=== PATIENT | female | born 1965 | race Caucasian/White ===

== ENCOUNTER 2018-01-21 07:37 | Outpatient (CLI) | payer BC, SELFPAY ==
[2018-01-21 07:59] LABS: HCT 41.9 % (36.0-46.0); HGB 14.2 g/dL (12.0-15.5); Mean Corp. HGB Concentration 33.9 g/dL (32.0-36.0); Mean Corpuscular Hemoglobin 32.1 pg (27.0-33.0); Mean Corpuscular Volume 94.6 fL (80-95); Mean Platelet Volume 10.9 fL (8.0-11.0); Platelet Count 216 x1000/uL (130-400); RBC 4.43 m/cumm (4.00-5.20); RBC Distribution Width 12.3 % (11.7-14.6); White Blood Cell Count 5.68 k/cumm (4.4-10.8)
[2018-01-21 08:53] LABS: ALT 44 U/L (12-78); AST 20 U/L (15-37); Albumin 3.3 g/dL (3.4-5.0); Alkaline Phosphatase 111 U/L (46-116); Anion Gap 10.3 mmol/L (3-11); BUN 18 mg/dL (7-18); Bilirubin, Total 0.3 mg/dL (0.2-1.0); CO2 25.7 mmol/L (21.0-32.0); CREATININE 1.08 mg/dL (0.55-1.02); Calcium 8.1 mg/dL (8.5-10.1); Chloride 105 mmol/L (98-107); Cholesterol 214 mg/dL (50-200); Estimated GFR 53.07 (mL/min/1.73m2); Glucose 147 mg/dL (70-100); HDL Cholesterol 32 mg/dL (40-60); LDL CHOLESTEROL 127 mg/dL (<100); Potassium 4.3 mmol/L (3.5-5.1); Sodium 141 mmol/L (136-145); TSH (W/Ref FT4) 1.68 uIU/mL (0.358-3.74); Total Protein 6.7 g/dL (6.4-8.2); Triglyceride 343 mg/dL (30-150)
== END 2018-01-21 07:57 ==
PROVIDERS: PCP Family Medicine; Visit Provider Family Medicine
DX: Z00.00 Encounter for general adult medical examination without abnormal findings (principal); K29.70 Gastritis, unspecified, without bleeding; Z13.220 Encounter for screening for lipoid disorders; Z13.29 Encounter for screening for other suspected endocrine disorder; Z13.228 Encounter for screening for other metabolic disorders
CPT/HCPCS: 36415; 80053; 80061; 83721; 85027; 84443

== ENCOUNTER 2018-01-21 10:49 | Outpatient (REF) | payer BC, SELFPAY ==
--- NOTE | 2018-01-21 10:00 | PAPFT_PTH ---
PATIENT: Elly Gardner LOC: [facility] U#:[id number] AGE/SX: 52/F ROOM: RE01/21/[address]: Rhea Jackson MD, DC : 1965 BED: DIS: 01/21/2018 SPEC #: [id number] RECD: 01/21/18 12:54 STATUS: JOSE REQ #: [id number] RUBA: 01/21/18 10:[address]: Rhea Jackson DEPT: [facility] Cytology RECD BY: Nilsa Herrera Tissues: 1 - CX/ENDOCX FOR PAP SMEARS Procedures: PAP THIN PREP/UVM Screening HPV DNA PROBE Comments: [id number]
== END 2018-01-21 11:09 ==
LOC: LBN 10:49
PROVIDERS: PCP Family Medicine; Visit Provider Family Medicine
DX: Z12.4 Encounter for screening for malignant neoplasm of cervix (principal); Z11.51 Encounter for screening for human papillomavirus (HPV)
CPT/HCPCS: 88142; 87624

== ENCOUNTER 2018-02-28 00:31 | Outpatient (CLI) | payer BC, SELFPAY ==
--- NOTE | 2018-02-28 13:00 | DI.MAMMO_ITS ---
SYMPTOM/DIAGNOSIS: SCREENING, Z12.31 MAMMOGRAMS: Mammograms were interpreted according to the usual protocol including computer analysis with CAD system, tomosynthesis and C view imaging. Comparison with prior examinations. Breast density A. No masses or microcalcifications are seen. There is nothing to suggest malignancy. IMPRESSION: Negative mammogram. Routine screening is recommended. Category I. MQSA ASSESSMENT OF FINDINGS: Negative. Category 1. Patient will receive a letter notifying them of these results. BI-RAD category A. The breasts are almost entirely fatty.
== END 2018-02-28 00:51 ==
PROVIDERS: PCP Family Medicine; Visit Provider Family Medicine
DX: Z12.31 Encounter for screening mammogram for malignant neoplasm of breast (principal)
CPT/HCPCS: 77063; 77067

== ENCOUNTER 2018-04-14 01:08 | Outpatient (CLI) | payer BC, SELFPAY ==
--- NOTE | 2018-04-14 11:20 | DI.RAD_ITS ---
SYMPTOM/DIAGNOSIS: BLOATING R14.0, ? IRRITABLE BOWEL DISEASE UPPER GI AND SMALL BOWEL FOLLOW THROUGH: Fluoroscopy Time: 37 seconds Comparison is made with 11/14/16. The patient swallowed barium without difficulty. Severe gastroesophageal reflux was observed when the patient was placed supine. The previously noted esophageal narrowing is no longer seen. No ulcerations are identified. The stomach shows normal emptying. The transit time of the barium to the colon was approximately 30 minutes. Small bowel fold pattern appears normal. A moderate quantity of stool is seen throughout the colon. IMPRESSION: Moderate to severe gastroesophageal reflux. No small bowel abnormality is identified.
[2018-04-14] MEDS: Barium Sulfate 60% W/V 355 ML BTL PO (11:31)
== END 2018-04-14 01:28 ==
PROVIDERS: PCP Family Medicine; Visit Provider Nurse Practitioner Family
DX: R14.0 Abdominal distension (gaseous) (principal); K21.9 Gastro-esophageal reflux disease without esophagitis
CPT/HCPCS: 74249; J3490

== ENCOUNTER 2018-07-20 08:37 | Outpatient (CLI) | payer BC, SELFPAY ==
[2018-07-20 10:34] LABS: Cholesterol 256 mg/dL (50-200); HDL Cholesterol 31 mg/dL (40-60); LDL CHOLESTEROL 141 mg/dL (<100); Triglyceride 395 mg/dL (30-150)
[2018-07-21 07:13] LABS: Hemoglobin A1C 6.7 % (4.5-6.2)
== END 2018-07-20 08:57 ==
PROVIDERS: PCP Family Medicine; Visit Provider Family Medicine
DX: I10 Essential (primary) hypertension (principal); R73.09 Other abnormal glucose
CPT/HCPCS: 36415; 80061; 83721; 83036

== ENCOUNTER 2018-11-21 09:00 | Outpatient (CLI) | payer BC, SELFPAY ==
[2018-11-21 10:49] LABS: Hemoglobin A1C 6.3 % (4.5-6.2)
== END 2018-11-21 09:20 ==
PROVIDERS: PCP Family Medicine; Visit Provider Family Medicine
DX: E11.9 Type 2 diabetes mellitus without complications (principal)
CPT/HCPCS: 36415; 83036

== ENCOUNTER 2019-01-24 01:05 | Outpatient (CLI) | payer BC, SELFPAY ==
[2019-01-24 10:25] LABS: ALT 49 U/L (14-59); AST 22 U/L (15-37); Albumin 3.8 g/dL (3.4-5.0); Alkaline Phosphatase 134 U/L (46-116); Anion Gap 10.3 mmol/L (3-11); BUN 21 mg/dL (7-18); Bilirubin, Total 0.6 mg/dL (0.2-1.0); CO2 26.7 mmol/L (21.0-32.0); CREATININE 1.15 mg/dL (0.55-1.02); Calcium 8.9 mg/dL (8.5-10.1); Chloride 102 mmol/L (98-107); Estimated GFR 49.17 (mL/min/1.73m2); Glucose 146 mg/dL (70-100); Potassium 4.6 mmol/L (3.5-5.1); Sodium 139 mmol/L (136-145); Total Protein 7.3 g/dL (6.4-8.2)
[2019-01-24 10:41] LABS: Hemoglobin A1C 6.4 % (4.5-6.2)
[2019-01-26 07:22] LABS: COMMENT (LAB VIEW ONLY) 93.24 mg/dL; Microalb ug/mg Crea 6.3 ug/mg Cr
== END 2019-01-24 01:25 ==
PROVIDERS: PCP Family Medicine; Visit Provider Family Medicine
DX: E11.9 Type 2 diabetes mellitus without complications (principal); I10 Essential (primary) hypertension
CPT/HCPCS: 36415; 80053; 82043; 82570; 83036

== ENCOUNTER 2019-01-27 10:47 | Outpatient (REF) | payer BC, SELFPAY ==
--- NOTE | 2019-01-27 10:00 | PAPFT_PTH ---
PATIENT: Elly Gardner LOC: [facility] U#:[id number] AGE/SX: 53/F ROOM: RE01/27/[address]: Rhea Jackson MD, DC : 1965 BED: DIS: 01/27/2019 SPEC #: [id number] RECD: 01/27/19 12:59 STATUS: JOSE REQ #: [id number] RUBA: 01/27/19 10:[address]: Rhea Jackson DEPT: [facility] Cytology RECD BY: Nilsa Herrera Tissues: 1 - CX/ENDOCX FOR PAP SMEARS Procedures: PAP THIN PREP/UVM Screening HPV DNA PROBE Comments: [id number]
== END 2019-01-27 11:07 ==
LOC: LBN 10:47
PROVIDERS: PCP Family Medicine; Visit Provider Family Medicine
DX: Z12.4 Encounter for screening for malignant neoplasm of cervix (principal); Z11.51 Encounter for screening for human papillomavirus (HPV)
CPT/HCPCS: 88142; 87624

== ENCOUNTER 2019-03-02 01:41 | Outpatient (CLI) | payer BC, SELFPAY ==
--- NOTE | 2019-03-02 15:35 | DI.MAMMO_ITS ---
EXAM: MG MAMMO SCREENING CLINICAL HISTORY: screening, Z12.39 TECHNIQUE: Mammograms were interpreted according to the usual protocol including computer analysis w [employer] CAD system, tomosynthesis and C-view imaging. COMPARISON: [id number] FINDINGS: The breasts are composed of fatty density tissue, breast density category A. There are no dominant m asses or microcalcifications. There is no significant interval change in comparison with the previous examinations. IMPRESSION: Category 1, negative mammogram. Yearly screening mammography is recommended. BI-RADS Cat 1 - Negative Breast Density - Category A - Almost entirely fatty
== END 2019-03-02 02:01 ==
PROVIDERS: PCP Family Medicine; Visit Provider Family Medicine
DX: Z12.31 Encounter for screening mammogram for malignant neoplasm of breast (principal)
CPT/HCPCS: 77063; 77067

== ENCOUNTER 2019-05-27 02:27 | Outpatient (CLI) | payer BC, SELFPAY ==
[2019-05-27 07:28] LABS: HCT 43.1 % (36.0-46.0); HGB 14.7 g/dL (12.0-15.5); Mean Corp. HGB Concentration 34.1 g/dL (32.0-36.0); Mean Corpuscular Hemoglobin 31.6 pg (27.0-33.0); Mean Corpuscular Volume 92.7 fL (80-95); Mean Platelet Volume 10.4 fL (8.0-11.0); Platelet Count 303 x1000/uL (130-400); RBC 4.65 m/cumm (4.00-5.20); RBC Distribution Width 12.3 % (11.7-14.6); White Blood Cell Count 5.52 k/cumm (4.4-10.8)
[2019-05-27 07:51] LABS: Hemoglobin A1C 7.3 % (3.8-5.6)
[2019-05-27 08:15] LABS: Iron 123 ug/dL (50-170)
[2019-05-27 08:42] LABS: Cholesterol 252 mg/dL (<200); HDL Cholesterol 27 mg/dL (40-60); TSH (W/Ref FT4) 2.78 uIU/mL (0.36-3.74); Triglyceride 469 mg/dL (<150); Vitamin B12 529 pg/mL (193-986)
[2019-05-27 09:04] LABS: LDL CHOLESTEROL 140 mg/dL (<100)
== END 2019-05-27 02:47 ==
PROVIDERS: PCP Family Medicine; Visit Provider Family Medicine
DX: Z00.00 Encounter for general adult medical examination without abnormal findings (principal); E11.9 Type 2 diabetes mellitus without complications; I10 Essential (primary) hypertension; F41.9 Anxiety disorder, unspecified
CPT/HCPCS: 36415; 80061; 83721; 85027; 82607; 83036; 83540; 84443

== ENCOUNTER 2019-05-28 11:56 | Outpatient (CLI) | payer BC, SELFPAY ==
--- NOTE | 2019-05-28 15:30 | DI.US_ITS ---
EXAM: US CAROTID CLINICAL HISTORY: vision loss; ? plague thru retina vasculature, H53.9 unspecifid visual TECHNIQUE: Ultrasound performed using standard protocol. COMPARISON: No previous for comparison. FINDINGS: On the right, no significant plaque is seen. No hemodynamically significant velocity elevations are present. The vertebral artery is antegrade. On the left, no significant plaque is seen. No hemodynamically significant velocity elevations are p resent. The vertebral artery is antegrade. IMPRESSION: No hemodynamically significant cervical carotid artery stenosis.
== END 2019-05-28 12:16 ==
PROVIDERS: PCP Family Medicine; Visit Provider Family Medicine
DX: H53.9 Unspecified visual disturbance (principal)
CPT/HCPCS: 93880

== ENCOUNTER 2019-09-14 07:36 | Outpatient (CLI) | payer BC, SELFPAY ==
[2019-09-14 16:58] LABS: ESR 12 mm/hr (0-30)
[2019-09-14 17:11] LABS: ALT 75 U/L (14-59); AST 33 U/L (15-37); Albumin 3.9 g/dL (3.4-5.0); Alkaline Phosphatase 116 U/L (46-116); Anion Gap 7.5 mmol/L (3-11); BUN 17 mg/dL (7-18); Bilirubin, Total 0.4 mg/dL (0.2-1.0); CO2 27.5 mmol/L (21.0-32.0); CREATININE 1.03 mg/dL (0.55-1.02); Calcium 9.3 mg/dL (8.5-10.1); Chloride 101 mmol/L (98-107); Cholesterol 256 mg/dL (<200); Estimated GFR 55.63 (mL/min/1.73m2); Glucose 148 mg/dL (74-106); HDL Cholesterol 29 mg/dL (40-60); Potassium 4.5 mmol/L (3.5-5.1); Sodium 136 mmol/L (136-145); Total Protein 7.2 g/dL (6.4-8.2); Triglyceride 594 mg/dL (<150)
[2019-09-14 17:26] LABS: LDL CHOLESTEROL 132 mg/dL (<100)
== END 2019-09-14 07:56 ==
PROVIDERS: PCP Family Medicine; Visit Provider Family Medicine
DX: E11.9 Type 2 diabetes mellitus without complications (principal); G45.3 Amaurosis fugax
CPT/HCPCS: 36415; 80053; 80061; 83721; 85652; 83036

== ENCOUNTER 2020-01-29 01:52 | Outpatient (CLI) | payer BC, SELFPAY ==
[2020-01-29 16:11] LABS: Hemoglobin A1C 6.6 % (<5.7)
== END 2020-01-29 02:12 ==
PROVIDERS: PCP Family Medicine; Visit Provider Family Medicine
DX: E11.9 Type 2 diabetes mellitus without complications (principal)
CPT/HCPCS: 36415; 83036

== ENCOUNTER 2020-03-14 00:51 | Outpatient (CLI) | payer BC, SELFPAY ==
--- NOTE | 2020-03-14 16:05 | DI.MAMMO_ITS ---
EXAM: MG MAMMO SCREENING CLINICAL HISTORY: screening,Z12.39. TECHNIQUE: Bilateral full field digital CC and MLO mammographic images were obtained with 3D tomosyn thesis and utilizing computer aided detection (CAD). COMPARISON: Prior mammograms dating back to 2010, the most recent being February 2019. Patient's mo gregory was diagnosed with breast cancer at age 54. FINDINGS: There are no CAD designation. There are no new dominant masses nor malignant appearing microcalcification groups. Benign-appearing nodule upper outer quadrant of the left breast is unchanged from prior studies. There is no new arch itectural distortion nor skin thickening-retraction. IMPRESSION: No radiographic evidence of malignancy. Stable benign findings. BI-RADS Category 1 - Negative Breast Density - Category B - Scattered areas of fibroglandular density Breast density Category C or D implies that the patient has dense breast tissue. Dense breast tissue can make it harder to find cancer on a mammogram. Dense breast tissue is also associated with an incr eased risk of breast cancer. This information about the result of the mammogram report was provided to the patient to raise their awareness. Use this report when you speak with the patient about their risks for breast cancer, which includes their family history. At that time, you may recommend additional screening tests (Ultrasoun d or MRI) as these tests may add significant information. A negative radiographic report should not delay biopsy if a dominant or clinically suspicious mass is present. Up to ten percent of cancers are not identified on mammography. A negative report may reinforce clinical impression. Adenosis and dense breasts may obscure an underlying neoplasm. False positive reports average 6 to 10%. Patient will receive a letter notifying them of these results.
== END 2020-03-14 01:11 ==
PROVIDERS: PCP Family Medicine; Visit Provider Family Medicine
DX: Z12.31 Encounter for screening mammogram for malignant neoplasm of breast (principal); Z80.3 Family history of malignant neoplasm of breast
CPT/HCPCS: 77063; 77067

== ENCOUNTER 2020-07-06 04:20 | Outpatient (CLI) | payer BC, SELFPAY ==
[2020-07-06 16:05] LABS: COMMENT (LAB VIEW ONLY) 172.07 mg/dL; Microalb ug/mg Crea 4.1 ug/mg Cr
[2020-07-06 16:15] LABS: Hemoglobin A1C 7.1 % (<5.7)
[2020-07-06 17:25] LABS: ALT 58 U/L (14-59); AST 26 U/L (15-37); Alkaline Phosphatase 129 U/L (46-116); Anion Gap 10.2 mmol/L (3-11); BUN 20 mg/dL (7-18); Bilirubin, Total 0.3 mg/dL (0.2-1.0); CO2 28.8 mmol/L (21.0-32.0); CREATININE 1.1 mg/dL (0.55-1.02); Chloride 100 mmol/L (98-107); Estimated GFR 51.38 (mL/min/1.73m2); Glucose 174 mg/dL (74-106); Potassium 4.1 mmol/L (3.5-5.1); Sodium 139 mmol/L (136-145); TSH (W/Ref FT4) 1.74 uIU/mL (0.36-3.74); Total Protein 7.6 g/dL (6.4-8.2); Vitamin B12 354 pg/mL (193-986)
== END 2020-07-06 04:21 | disposition home or self-care (01) ==
PROVIDERS: PCP Family Medicine; Visit Provider Family Medicine
DX: Z00.00 Encounter for general adult medical examination without abnormal findings (principal); I10 Essential (primary) hypertension; E11.9 Type 2 diabetes mellitus without complications; R41.3 Other amnesia
CPT/HCPCS: 36415; 80053; 82043; 82570; 82607; 83036; 84443

== ENCOUNTER 2020-10-28 21:34 | Outpatient (CLI) | payer BC, SELFPAY ==
[2020-10-28 16:01] LABS: Hemoglobin A1C 8.4 % (<5.7)
== END 2020-10-28 21:35 | disposition home or self-care (01) ==
LOC: LBO 10-31 21:34
PROVIDERS: PCP Family Medicine; Visit Provider Family Medicine
DX: E11.9 Type 2 diabetes mellitus without complications (principal)
CPT/HCPCS: 36415; 83036

== ENCOUNTER 2021-01-11 18:12 | Outpatient (REF) | payer BC, SELFPAY ==
[2021-01-13 12:04] LABS: COVID-19 RT-PCR UVMMC Result Negative (Negative)
== END 2021-01-11 18:13 | disposition home or self-care (01) ==
LOC: LBN 18:12
PROVIDERS: PCP Family Medicine; Visit Provider Physician Assistant
DX: Z20.822 Contact with and (suspected) exposure to COVID-19 (principal); J32.9 Chronic sinusitis, unspecified; R51.9 Headache, unspecified
CPT/HCPCS: U0003

== ENCOUNTER 2021-02-16 02:43 | Outpatient (CLI) | payer BC, SELFPAY ==
[2021-02-16 12:39] LABS: Hemoglobin A1C 7.1 % (<5.7)
[2021-02-16 12:52] LABS: Calculated LDL 141 mg/dL (<100); Cholesterol 255 mg/dL (<200); HDL Cholesterol 35 mg/dL (40-60); Triglyceride 396 mg/dL (<150)
[2021-02-16 13:04] LABS: Ferritin 122 ng/mL (8-252)
== END 2021-02-16 02:44 | disposition home or self-care (01) ==
LOC: LOS 02:43
PROVIDERS: Nurse Practitioner; PCP Family Medicine; Visit Provider Family Medicine
DX: M25.511 Pain in right shoulder (principal); I10 Essential (primary) hypertension; E11.9 Type 2 diabetes mellitus without complications
CPT/HCPCS: 36415; 80061; 82728; 83036

== ENCOUNTER 2021-04-24 01:39 | Outpatient (CLI) | payer BC, SELFPAY ==
--- NOTE | 2021-04-24 09:00 | DI.MAMMO_ITS ---
Exam(s) MAMMO SCREENING EXAM: MAMMO SCREENING CLINICAL HISTORY: screening,Z12.39 TECHNIQUE: Mammograms were interpreted according to the usual protocol including computer analysis w [employer] CAD system, tomosynthesis and C-view imaging. COMPARISON: 2011 through 2019 FINDINGS: The breasts are composed of mainly fatty density , Breast Density category A. No suspicious masses or suspicious microcalcifications are seen. No skin thickening or abnormal axillary lymph nodes are seen. There has been no significant change from prior exams. IMPRESSION: BI-RADS Category 1, Negative mammogram Yearly screening mammography is recommended. Breast Density - Category A, fatty density. A negative radiographic report should not delay biopsy if a dominant or clinically suspicious mass is present. Up to ten percent of cancers are not identified on mammography. A negative report may reinforce clinical impression. Adenosis and dense breasts may obscure an underlying neoplasm. False positive reports average 6 to 10%. Patient will receive a letter notifying them of these results.
== END 2021-04-24 01:59 ==
PROVIDERS: PCP Family Medicine; Visit Provider Family Medicine
DX: Z12.31 Encounter for screening mammogram for malignant neoplasm of breast (principal)
CPT/HCPCS: 77063; 77067

== ENCOUNTER 2021-06-26 10:07 | Outpatient (REF) | payer BC, SELFPAY ==
[2021-06-26 14:15] LABS: COMMENT (LAB VIEW ONLY) 137.79 mg/dL
== END 2021-06-26 10:08 | disposition home or self-care (01) ==
LOC: LBN 10:07
PROVIDERS: PCP Family Medicine; Visit Provider Family Medicine
DX: E11.9 Type 2 diabetes mellitus without complications (principal)
CPT/HCPCS: 82043; 82570

== ENCOUNTER 2021-06-29 08:36 | Emergency (ER) | payer BC, SELFPAY ==
[2021-06-29] VITALS (11 sets, daily range): BP systolic 146–186; BP diastolic 82–106; PULSE 61–78; RESP 14–28; TEMP 36.4; O2SAT 95–99
--- NOTE | 2021-06-29 09:00 | RT.EKG_ITS ---
APPROVED REPORT Exam: Resting ECG Reason for Exam: nausea, head fog Patient Location: E HR:59 bpm ECG Measurements Heart Rate 59 AXIS ID 145 P 45 QRSd 87 QRS 45 QT 419 T 29 QTc 415 Conclusion Sinus bradycardia...rate< [address] elevation
--- NOTE | 2021-06-29 09:00 | DI.RAD_ITS ---
Exam(s) XR CHEST 2V PA LATERAL EXAM: XR CHEST 2V PA LATERAL CLINICAL HISTORY: nausea, head fog. TECHNIQUE: 2D digital imaging was performed. COMPARISON: CR,RF BARIUM SWALLOW UGI from 11/14/2016 FINDINGS: 2 views: Heart size is normal. The mediastinum is not widened. Lungs are clear. No infiltrates nor pleural effusions. IMPRESSION: No acute pulmonary findings. DATA REPOSITORY: RADIATION DOSE DELIVERED:
[2021-06-29 09:35] LABS: Abs Immature Grans 0.05 10^3/uL (0.0-0.06); Absolute Basophil Count 0.04 10^3/uL (0.0-0.2); Absolute Eosinophil Count 0.13 10^3/uL (0.0-0.7); Absolute Lymphocyte Count 2.05 10^3/uL (1.2-3.4); Absolute Monocyte Count 0.46 10^3/uL (0.1-0.8); Absolute Neutrophil Count 4.73 10^3/uL (1.2-6.7); Basophils % 0.5; Eosinophils % 1.7; HCT 44.7 % (36.0-46.0); HGB 14.9 g/dL (11.2-15.7); Immature Grans % 0.7; Lymphocytes % 27.5; MCH 31.2 pg (27.0-33.0); MCHC 33.3 % (32.0-36.0); MCV 93.5 fL (80-95); Monocytes % 6.2; Neutrophils % 63.4; Nucleated RBC 0 %; Platelet Count 271 10^3/uL (130-400); RBC 4.78 10^6/uL (3.93-5.22); RDW-SD 41.7 fL; WBC 7.46 10^3/uL (4.4-10.8)
[2021-06-29] MEDS: Omnipaque 350 MG/ML 100 ML BTL IJ (09:36)
--- NOTE | 2021-06-29 09:42 | DI.CT_ITS ---
Exam(s) CT BRAIN NECK CTA EXAM: CT BRAIN NECK CTA CLINICAL HISTORY: head fog, nausea. TECHNIQUE: Imaging Protocol: Axial CT angiography was performed with multi-slice acquisition and mu lti-planar and/or 3D reconstructions. CONTRAST MATERIAL: Intravenous: Omnipaque 350 Contrast volume:structured data in ml COMPARISON: CT ABD PELVIS WITH CONTRAST from 10/28/2017 FINDINGS: CTA Neck W: Aortic arch anatomy: The left vertebral artery is noted to originate is a separate vessel off the aor tic arch. There is no significant narrowing of the origin of the great vessels off the aortic arch. No dissection flap evident in the aortic arch Anterior circulation: Both common carotid arteries ascend with normal luminal diameters. There is no significant narrowing at the level the carotid bifurcations and proximal internal carotid arteries on either side and both internal carotid arteries are patent in the upper neck. Also demonstrated to be patent in the skull base-carotid canals. Posterior circulation: The left vertebral artery originates as an independent vessel off the aortic arch and ascends as the dominant vertebral artery in the foramen transverse area with normal luminal diameter and serving is the main contributor to the formation of the basilar artery at the skull base. No intraluminal throm bus nor dissection flap seen within this vessel. The opposite-right vertebral artery is a smaller vessel with a luminal diameter of 2 millimeters. It does not exhibit evidence of intraluminal thrombus nor dissection but terminates at at the skull bas e and does not appear to contribute to the formation of the basilar artery. CTA Brain W: Anterior circulation: Both internal carotid arteries are patent in the skull base-carotid canals as well as within the cave rnous sinuses. Supraclinoid aspects are patent. Both A1 segments are patent as are the anterior cer ebral arteries and there is no evidence of aneurysm at the anterior communicating artery level. Both middle cerebral arteries are patent. No significant stenosis nor intraluminal thrombus. No ane urysms these vessels. Posterior circulation: Basilar artery is a thin vessel and ascends with a luminal diameter 2.5 millimeters. Distally it giv es off superior cerebellar arteries. Above this level the basilar artery ends as bilateral posterior cerebral arteries. There are bilateral posterior communicating arteries both sides of the [place] which and to the blood flow into the posterior cerebral arteries. No significant aneurysm at the tip basilar artery nor elsewhere in the [id number]. CT BRAIN: There is no evidence of intracranial hemorrhage, mass effect, or shift of midline structures. There are no extra-axial fluid collections. Ventricles are not enlarged or shifted. There are no ring enh ancing lesions in the brain and no abnormal meningeal enhancement. Incidental note is made of an abnormally elongated right orbital globe. The left orbital globe appea rs unremarkable. IMPRESSION: 1. No evidence of significant carotid artery stenosis in the neck. Both vertebral arteries are paten t, with the left being dominant. Incidentally noted is origin the left vertebral artery off of the a ortic arch. 2. No evidence of significant stenosis nor thrombosis of the main intracranial arteries. No aneurys ms evident. 3. No acute intracranial findings. No ring enhancing lesions in the brain and no abnormal meningea l enhancement. RADIATION DOSE DELIVERED: 1,826.69mGy.cm Total DLP DATA REPOSITORY: All CT scans at this facility are submitted to the National Radiology Data Registry (NRDR) Dose Index Registry (DIR) with the [employer] [place] [employer] (ACR). RADIATION OPTIMIZATION: All CT scans at this facility use at least one of these dose optimization te chniques: automated exposure control; mA and/or kV adjustment per patient size (includes targeted exa ms where dose is matched to clinical indication); or iterative reconstruction.
[2021-06-29 09:50] LABS: ALT 51 U/L (14-59); AST 20 U/L (15-37); Albumin 4.2 g/dL (3.4-5.0); Alkaline Phosphatase 134 U/L (46-116); Anion Gap 9.3 mmol/L (3-11); BUN 25 mg/dL (7-18); Bilirubin, Total 0.5 mg/dL (0.2-1.0); CO2 27.7 mmol/L (21.0-32.0); CREATININE 1.2 mg/dL (0.55-1.02); Calcium 9.3 mg/dL (8.5-10.1); Chloride 102 mmol/L (98-107); Glucose 227 mg/dL (74-106); Magnesium 1.9 mg/dL (1.8-2.4); Potassium 4.3 mmol/L (3.5-5.1); Sodium 139 mmol/L (136-145); Total Protein 8.1 g/dL (6.4-8.2)
--- NOTE | 2021-06-29 09:50 | ED.GENADUL_ITS ---
Discharge Plan Disposition Patient Disposition: HOME Condition: Improving Discharge Details Clinical Impression: AMS (altered mental status) Primary Care Provider: Rhea Jackson ED Provider: Rafa Gonzalez Home Meds and New Rx's Prescriptions: Continued semaglutide 7 mg tablet 7 mg PO DAILY Qty: 30 5RF metformin 1,000 mg tablet 1,000 mg PO DAILY Qty: 180 5RF atenolol 100 mg tablet 100 mg PO DAILY Qty: 90 12RF losartan 25 mg tablet 25 mg PO DAILY Qty: 90 6RF omeprazole 20 mg capsule,delayed release(DR/EC) 20 mg PO DAILY Qty: 90 4RF venlafaxine 37.5 mg capsule,extended release 24hr 37.5 mg PO DAILY Qty: 90 5RF aspirin [Adult Low Dose Aspirin] 81 mg tablet,delayed release (DR/EC) 81 mg PO DAILY Qty: 90 5RF triamcinolone acetonide 0.1 % cream 1 applic topical BID Qty: 80 0RF Rx Instructions: apply to foot Discharge Instructions Instructions: Altered Mental Status (ED) Additional Instructions: Work-up in the ER including imaging and laboratory values do not reveal any obvious emergent process. You are neurologically intact and reports that your fog-like state has resolved completely. Please watch for new or worsening symptoms and return to the ER for any concerns. I strongly recommend contacting both your primary care provider and your neurology team later today or tomorrow discuss your ER visit, ongoing symptoms, need for outpatient reevaluation. Discharge Data Discharge Date/Time-TO BE ENTERED AT DEPARTURE: 06/29/21 11:52 Medical Decision Making 56-year-old female past medical history of diabetes, progressing difficulty word finding and memory changes, postacute COVID-19 syndrome, scheduled be seen by a neurologist in the beginning of August, presents for what she describes as feeling like she is in a fog. Denies any pain, recent illness or trauma. Clinically she appears well, nontoxic, neurologically intact. She is hypertensive at 186/101. Plan is to obtain IV access, initiate cardiac work-up although extremely low suspicion for ACS, screening laboratory values for leukocytosis, anemia, metabolic abnormality, renal dysfunction etc. and obtain CT of her brain as well as a CTA of her brain and neck for further evaluation of potential CVA. Given her lack of chest pain or shortness of breath, low clinical suspicion I feel as though a single troponin and EKG is appropriate Patient receiving 1 L IV fluid. Laboratory values do not reveal any obvious emergent process. Glucose is at 227 although this is no surprise with her recent elevated A1c. Brain CT as well as brain CTA and neck CTA are unremarkable per radiology. [address]ola st x-ray also unremarkable Upon reevaluation patient is resting comfortably, remains neurologically intact, reports that her symptoms have resolved completely. Blood pressures are now in the 140s over 80s. While her new medication may cause nausea, it is difficult to state that this medication is causing her fog. I was able to speak with her who is now in the room, reports that she appears to be at baseline. He is to has witnessed her memory and word finding difficulties progress over the past 6 months or so. This certainly could be an exacerbation of her ongoing vague neurology complaints, post Covid syndrome, etc. I do believe that outpatient follow-up with her primary care provider to discuss her ongoing symptoms and recent medication change is reasonable. I also discussed the importance of following up with neurology, contacting them to see if she can be seen sooner than her scheduled appointment in early August. Strict discharge and return precautions were provided. This documentation was generated using [employer] dictation system, please disregard any oddities of phrase or misspellings. Medical Records Medical records reviewed: Yes I reviewed the patient's medical records. Imaging Data Radiologic Study: Attestation: I personally reviewed and interpreted this imaging study as follows: Imaging: CT Scan Radiologist's impression: Exam(s) CT BRAIN NECK CTA EXAM: CT BRAIN NECK CTA CLINICAL HISTORY: head fog, nausea. TECHNIQUE: Imaging Protocol: Axial CT angiography was performed with multi- slice acquisition and multi-planar and/or 3D reconstructions. CONTRAST MATERIAL: Intravenous: Omnipaque 350 Contrast volume:structured data in ml COMPARISON: CT ABD PELVIS WITH CONTRAST from 10/28/2017 FINDINGS: CTA Neck W: Aortic arch anatomy: The left vertebral artery is noted to originate is a separate vessel off the aortic arch. There is no significant narrowing of the origin of the great vessels off the aortic arch. No dissection flap evident in the aortic arch Anterior circulation: Both common carotid arteries ascend with normal luminal diameters. There is no significant narrowing at the level the carotid bifurcations and proximal internal carotid arteries on either side and both internal carotid arteries are patent in the upper neck. Also demonstrated to be patent in the skull base- carotid canals. Posterior circulation: The left vertebral artery originates as an independent vessel off the aortic arch and ascends as the dominant vertebral artery in the foramen transverse area with normal luminal diameter and serving is the main contributor to the formation of the basilar artery at the skull base. No intraluminal thrombus nor dissection flap seen within this vessel. The opposite-right vertebral artery is a smaller vessel with a luminal diameter of 2 millimeters. It does not exhibit evidence of intraluminal thrombus nor dissection but terminates at at the skull base and does not appear to contribute to the formation of the basilar artery. CTA Brain W: Anterior circulation: Both internal carotid arteries are patent in the skull base-carotid canals as well as within the cavernous sinuses. Supraclinoid aspects are patent. Both A1 segments are patent as are the anterior cerebral arteries and there is no evidence of aneurysm at the anterior communicating artery level. Both middle cerebral arteries are patent. No significant stenosis nor intraluminal thrombus. No aneurysms these vessels. Posterior circulation: Basilar artery is a thin vessel and ascends with a luminal diameter 2.5 millimeters. Distally it gives off superior cerebellar arteries. Above this level the basilar artery ends as bilateral posterior cerebral arteries. There are bilateral posterior communicating arteries both sides of the [id number] which and to the blood flow into the posterior cerebral arteries. No significant aneurysm at the tip basilar artery nor elsewhere in the ci [id number]. CT BRAIN: There is no evidence of intracranial hemorrhage, mass effect, or shift of midline structures. There are no extra-axial fluid collections. Ventricles are not enlarged or shifted. There are no ring enhancing lesions in the brain and no abnormal meningeal enhancement. Incidental note is made of an abnormally elongated right orbital globe. The left orbital globe appears unremarkable. IMPRESSION: 1. No evidence of significant carotid artery stenosis in the neck. Both vertebral arteries are patent, with the left being dominant. Incidentally noted is origin the left vertebral artery off of the aortic arch. 2. No evidence of significant stenosis nor thrombosis of the main intracranial arteries. No aneurysms evident. 3. No acute intracranial findings. No ring enhancing lesions in the brain and no abnormal meningeal enhancement. Radiologic Study #2: Attestation: I personally reviewed and interpreted this imaging study as follows: Imaging: X-Ray Radiologist's impression: Exam(s) XR CHEST 2V PA LATERAL EXAM: XR CHEST 2V PA LATERAL CLINICAL HISTORY: nausea, head fog. TECHNIQUE: 2D digital imaging was performed. COMPARISON: CR,RF BARIUM SWALLOW UGI from 11/14/2016 FINDINGS: 2 views: Heart size is normal. The mediastinum is not widened. Lungs are clear. No infiltrates nor pleural effusions. IMPRESSION: No acute pulmonary findings. Lab Data Lab results reviewed: Yes I reviewed the patient's lab results. Labs: Laboratory Tests Range/Units 06/29/21 06/29/21 06/29/21 08:55 08:55 10:02 WBC (4.4-10.8) 10^3/uL 7.46 RBC (3.93-5.22) 10^6/uL 4.78 Hgb (11.2-15.7) g/dL 14.9 Hct (36.0-46.0) % 44.7 MCV (80-95) fL 93.5 MCH (27.0-33.0) pg 31.2 MCHC (32.0-36.0) % 33.3 RDW (11.7-14.6) % 12.0 Plt Count (130-400) 10^3/uL 271 MPV (8.0-11.0) fL 11.0 Immature Gran % 0.7 Neutrophils % 63.4 Lymphocytes % 27.5 Monocytes % 6.2 Eosinophils % 1.7 Basophils % 0.5 Nucleated RBC % % 0 Absolute Neutrophils (1.2-6.7) 10^3/uL 4.73 Absolute Lymphocytes (1.2-3.4) 10^3/uL 2.05 Absolute Monocytes (0.1-0.8) 10^3/uL 0.46 Absolute Eosinophils (0.0-0.7) 10^3/uL 0.13 Absolute Basophils (0.0-0.2) 10^3/uL 0.04 Sodium (136-145) mmol/L 139 Potassium (3.5-5.1) mmol/L 4.3 Chloride (98-107) mmol/L 102 Carbon Dioxide (21.0-32.0) mmol/L 27.7 Anion Gap (3-11) mmol/L 9.3 BUN (7-18) mg/dL 25 H Creatinine (0.55-1.02) mg/dL 1.2 H Estimated GFR/1.73 m2 (mL/min/1.73m2) 46.30 Glucose (74-106) mg/dL 227 H Calcium (8.5-10.1) mg/dL 9.3 Magnesium (1.8-2.4) mg/dL 1.9 Total Bilirubin (0.2-1.0) mg/dL 0.5 AST (15-37) U/L 20 ALT (14-59) U/L 51 Alkaline Phosphatase (46-116) U/L 134 H Troponin I (<or=60) ng/L < 50 Total Protein (6.4-8.2) g/dL 8.1 Albumin (3.4-5.0) g/dL 4.2 Urine Color (Yellow) Yellow Urine Clarity (Clear) Clear Urine pH (5-8) 7.0 Ur Specific Malone (1.005-1.025) 1.020 Urine Protein (Negative) mg/dL Negative Urine Ketones (Negative) mg/dL Negative Urine Blood (Negative) Negative Urine Nitrite (Negative) Negative Urine Bilirubin (Negative) Negative Urine Urobilinogen (Up TO 0.2) EU/dL 0.2 Ur Leukocyte Esterase (Negative) Negative Urine Glucose (Negative) mg/dL 250 H ECG Data Attestation: I personally reviewed and interpreted this ECG (s) as follows: Interpretation: Please see official report by Dr. Osborn. Sinus bradycardia, ventricular rate of 59, no STEMI. HPI General Mode of arrival: ambulatory . Date/Time Provider Initiated Documentation: 06/29/21 08:37 . Limitations to Documentation: no limitations . Information obtained by: patient (and friend) . HPI Narrative: This is a 56-year-old female with, past medical history of diabetes, hyp ertension, depression, anxiety, post acute COVID-19 syndrome, progressive memory changing and difficulty with word finding, presenting to the ER reporting feeling as though she is in a fog. Patient denies any pain, recent illness or trauma, and has difficulty describing what she is going through. She states this began around 8:00 after arriving at school. The morning was normal, had breakfast without difficulty. She currently denies any headache, fever, neck pain, visual changes, chest pain, shortness of breath, abdominal pain, vomiting, numbness, tingling, weakness in her extremities, change in bowel or bladder function. Reports mild nausea. Patient states that with her ongoing memory issues and difficulty with word finding she is scheduled to be seen by a neurologist in early August. She also states that on Saturday she began taking semaglutide and wonders if this could be causing her symptoms. Patient states that her symptoms now are improving when compared to 8 AM but they have not resolved completely. Related Data Home Medications Medication Instructions Recorded Confirmed metformin 1,000 mg tablet 1,000 mg PO DAILY #180 tab 02/27/21 06/29/21 semaglutide 7 mg tablet 7 mg PO DAILY #30 tab 02/27/21 06/29/21 aspirin 81 mg tablet,delayed 81 mg PO DAILY #90 tab 06/12/21 06/29/21 release (Adult Low Dose Aspirin) atenolol 100 mg tablet 100 mg PO DAILY #90 tab 06/12/21 06/29/21 losartan 25 mg tablet 25 mg PO DAILY #90 tab 06/12/21 06/29/21 omeprazole 20 mg capsule,delayed 20 mg PO DAILY #90 tab-cap 06/12/21 06/29/21 release venlafaxine 37.5 mg 37.5 mg PO DAILY #90 cap 06/12/21 06/29/21 capsule,extended release 24 hr triamcinolone acetonide 0.1 % 1 applic TOPICAL BID #80 g 06/26/21 06/29/21 topical cream Previous Rx's Medication Instructions Recorded metformin 1,000 mg tablet 1,000 mg PO DAILY #180 tab 02/27/21 semaglutide 7 mg tablet 7 mg PO DAILY #30 tab 02/27/21 aspirin 81 mg tablet,delayed 81 mg PO DAILY #90 tab 06/12/21 release (Adult Low Dose Aspirin) atenolol 100 mg tablet 100 mg PO DAILY #90 tab 06/12/21 losartan 25 mg tablet 25 mg PO DAILY #90 tab 06/12/21 omeprazole 20 mg capsule,delayed 20 mg PO DAILY #90 tab-cap 06/12/21 release venlafaxine 37.5 mg 37.5 mg PO DAILY #90 cap 06/12/21 capsule,extended release 24 hr triamcinolone acetonide 0.1 % 1 applic TOPICAL BID #80 g 06/26/21 topical cream Allergies Allergy/AdvReac Type Severity Reaction Status Date / Time lisinopril Allergy Intermediate CHEST Verified 06/29/21 09:13 PRESSURE morphine Allergy Unknown FACIAL Verified 06/29/21 09:13 SWELLING meperidine AdvReac Mild REALLY Verified 06/29/21 09:13 OUT OF IT General Stated Complaint: AMS/LOC ELDA: 3 Review of Systems Constitutional Constitutional: Denies fatigue, Denies fever(s), Denies headache(s) and Denies weakness Eyes Eyes: Denies change in vision and Denies diplopia ENT Ears, Nose, Mouth, and Throat: Denies headache(s) and Denies neck pain Cardiovascular Cardiovascular: Denies chest pain and Denies dyspnea Respiratory Respiratory: Denies cough and Denies dyspnea Gastrointestinal Gastrointestinal: Denies abdominal pain, Reports nausea and Denies vomiting Musculoskeletal Musculoskeletal: Denies back pain, Denies neck pain, Denies numbness and Denies tingling Integumentary/Breasts Skin/Breast: Denies rash Neurologic Neurologic: Denies headache(s), Denies numbness, Denies tingling and Denies weakness Endocrine Endocrine: Denies fatigue Hematologic/Lymphatic Hematologic/Lymphatic: Denies easy bleeding and Denies easy bruising PFSH All Active Problems (Updated 06/29/21 @ 11:25 by RICK Jones) AMS (altered mental status) (Acute) Post-acute COVID-19 syndrome (Acute) Word finding difficulty (Acute) Ankle pain (Acute) Sleep apnea (Acute) Memory change (Acute) Diabetes mellitus (Chronic) Stress due to illness of family member (Acute) Urinary incontinence (Chronic 06/08/13) Nasal valve stenosis (Chronic 08/19/17) Hypertrophy of nasal turbinates (Chronic 08/19/17) Gastritis (Chronic 01/01/17) 01/01/17; MODERATE Essential hypertension (Chronic 03/13/13) Esophagitis (Chronic 01/01/17) 01/01/17~SEVERE WITH EROSION Duodenitis (Chronic 01/01/17) 01/01/17 Depression (Chronic 10/03/17) Anxiety (Chronic 09/27/16) Annual physical exam (Acute 11/08/16) Medical History Anxiety Dysfunctional uterine bleeding Dysfunctional uterine bleeding Epicondylitis left Epicondylitis GERD (gastroesophageal reflux disease) HTN (hypertension) Postprandial abdominal bloating (10/03/17) Stuffy nose 08/30/14 Surgical History section X 2 Colonoscopy - MAC (01/01/17) Dilation and curettage (~2007) and Hysteroscopy for DUB EGD - MAC (01/01/17) H/O section x 2 History of section NASAL SURGERY 10/21/17; DR. ZAMUDIO S/P dilatation and curettage 04/15/07 and hysterectomy for DUB Status post dilation and curettage Family History Mother Diabetes Essential hypertension Grafts VASCULAR Depression Breast cancer Hyperlipidemia Father Essential hypertension CAD (coronary artery disease) Heart disease Myocardial infarction Hyperlipidemia Cancer of kidney Sister Alcohol abuse Depression Brother No problems noted. Maternal Grandfather Depression Prostate cancer Paternal Grandfather Asthma Maternal Grandmother Diabetes Heart disease Paternal Grandmother Essential hypertension Heart disease Hyperlipidemia Son Alcohol abuse Hypertension Son Depression Hypertension Daughter Depression Social History Smoking/Tobacco Use Status: Former Tobacco Use Quit Date: 04/15/85 Tobacco: How many years used: 5 Smoking risk assessment performed?: Yes Alcohol Intake: current Alcohol Intake frequency: a few times a month Drug use: Never Substance use type: does not use Caregiver/Support person: No Household members: spouse Housing: house Communication Needs: None Do you need help understanding health information?: Never 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 Pets and animals: Yes Pets and animals: cat(s) and dog(s) Sexually active: Yes Do you think of yourself as: straight/heterosexual Current gender identity: female What is your relationship status?: How often do you talk on the phone with friends or family?: three or more times per week How often do you get together with friends or relatives?: three or more times per week How often do you attend evangelical or mormon services?: decline to answer Do you belong to any clubs or organized social groups?: no Panel score (0-1 are the most socially isolated patients): 2 What type of physical activity do you participate in: decline to answer Duration: 30-45 minutes/day Frequency: 3-4 times per week Jennifer/Gnosticist: Spiritism Special jennifer needs: No Seatbelt use: always Helmet use: Yes Helmet use: sometimes Drive intox or ride w/intox route driver salesperson: No Do you feel safe at home: Yes Do you feel safe in your relationship?: Yes Victim of physical abuse: No Victim of emotional abuse: No Victim of sexual abuse: No Would you like helpful sources: No Exam Const General: cooperative, healthy appearing, comfortable and no acute distress Orientation: alert, awake and oriented x3 [facility] Head: normal to inspection, normocephalic and atraumatic Face and sinus: normal facial exam Mouth: moist mucous membranes Throat: posterior oropharynx normal Eyes General: appearance normal, both eyes and all related structures Alignment and Position: alignment normal Periorbital: periorbital findings normal Eyelids: eyelids normal Conjunctivae: conjunctivae normal Sclera: sclerae normal Cornea: corneas normal Pupils: PERRL EOM: EOM intact bilaterally Direct ophthalmoscopy: normal light reflex Neck Neck: normal visual inspection, full ROM, no meningeal signs, trachea midline and supple Resp Effort & Inspection: normal respiratory effort and able to speak in complete sentences Auscultation: clear to auscultation bilaterally Cardio Rate: regular rate Rhythm: regular rhythm GI Palpation: soft and nontender Skin General skin exam: no rashes or lesions noted Neuro General: patient alert, patient awake, patient oriented x3, moves all extremities and no focal motor deficits Cranial Nerves: CN's II-XI intact bilaterally Cognition: normal cognition Speech: speech normal Gait: normal gait Motor: muscle tone normal throughout, strength 5/5 throughout, no pronator drift, no movement abnormalities noted and no fasciculations Sensory Exam: no sensory deficits noted Coordination: [id number] test normal and Does not sway with eyes open Extrem General: normal to inspection, full ROM, capillary refill normal, no pedal edema and no calf tenderness Psych Appearance: grossly normal Mental Status: mental status grossly normal Course Vital Signs Vital signs: Vital Signs Temperature 36.4 C L 06/29/21 08:40 Pulse 78 06/29/21 08:40 Respiratory Rate 18 06/29/21 08:40 Blood Pressure 186/101 H 06/29/21 08:40 Pulse Oximetry 96 06/29/21 08:40 Temperature 36.4 C L 06/29/21 08:40 Temperature Source Temporal Artery Scan 06/29/21 08:40 Pulse 70 06/29/21 08:41 Respiratory Rate 16 06/29/21 09:15 Respiratory Effort Non-Labored 06/29/21 09:15 Respiratory Depth Normal 06/29/21 09:15 Respiratory Pattern Normal 06/29/21 09:15 Blood Pressure 186/101 H 06/29/21 08:41 Blood Pressure Mean 121 06/29/21 08:41 Blood Pressure Position Supine 06/29/21 08:40 Pulse Oximetry 96 06/29/21 08:40 Oxygen Delivery Method Room Air 06/29/21 08:40 Oxygen Flow Rate 0 06/29/21 08:40 Lab/Test Results Lab/Test Results: Laboratory Tests Range/Units 06/29/21 08:55 WBC (4.4-10.8) 10^3/uL 7.46 RBC (3.93-5.22) 10^6/uL 4.78 Hgb (11.2-15.7) g/dL 14.9 Hct (36.0-46.0) % 44.7 MCV (80-95) fL 93.5 MCH (27.0-33.0) pg 31.2 MCHC (32.0-36.0) % 33.3 RDW (11.7-14.6) % 12.0 Plt Count (130-400) 10^3/uL 271 MPV (8.0-11.0) fL 11.0 Immature Gran % 0.7 Neutrophils % 63.4 Lymphocytes % 27.5 Monocytes % 6.2 Eosinophils % 1.7 Basophils % 0.5 Nucleated RBC % % 0 Absolute Neutrophils (1.2-6.7) 10^3/uL 4.73 Absolute Lymphocytes (1.2-3.4) 10^3/uL 2.05 Absolute Monocytes (0.1-0.8) 10^3/uL 0.46 Absolute Eosinophils (0.0-0.7) 10^3/uL 0.13 Absolute Basophils (0.0-0.2) 10^3/uL 0.04
[2021-06-29 09:51] LABS: Troponin I < 50 ng/L (<or=60)
[2021-06-29 10:12] LABS: Bilirubin Negative (Negative); Blood Negative (Negative); Clarity Clear (Clear); Glucose 250 mg/dL (Negative); Ketones Negative (Negative); Leukocyte Esterase Negative (Negative); Nitrite Negative (Negative); Urobilinogen 0.2 EU/dL (Up TO 0.2)
[2021-06-29] MEDS: Normal Saline 1,000 ML 1000 ML IV (10:12)
== END 2021-06-29 11:52 | disposition home or self-care (01) ==
PROVIDERS: Emergency Provider Physician Assistant; PCP Family Medicine
DX: R41.82 Altered mental status, unspecified (principal); R11.0 Nausea; E11.9 Type 2 diabetes mellitus without complications; U09.9 Post COVID-19 condition, unspecified
CPT/HCPCS: 36415; 36416; 70496; 70498; 80053; 82962; 93005; 96360; 99285; 71046; 81003; 83735; 84484; 85025; 93010; 99284; J3490

== ENCOUNTER → 2021-07-05 00:33 | Outpatient (CLI) | payer BC, SELFPAY ==
--- NOTE | 2021-07-05 07:30 | DI.MRI_ITS ---
Exam(s) MR BRAIN WO EXAM: MR BRAIN WO CLINICAL HISTORY: pt with word finding difficulty,r47.89 TECHNIQUE: Multiplanar multisequence MRI of the brain was performed. COMPARISON: CR XR CHEST 2V PA LATERAL from 06/29/[address] BRAIN NECK CTA from 06/29/2021 FINDINGS: CEREBRAL PARENCHYMA: There is no evidence of intracranial hemorrhage, mass effect, or shift of midline structures. There are no extra-axial fluid collections. Ventricles are not enlarged or shifted. There is no significant focal signal abnormality in the cerebellar hemispheres nor within the mary, m idbrain, and thalami. In the periventricular white matter there is a single solitary 2 millimeter nonspecific focus of sign al abnormality in the right supra ventricular white matter. This is a nonspecific finding. There is no prominent periventricular signal abnormality. There is no significant focal signal abnormality evident on diffusion imaging to suggest acute ischem ic event. SWI imaging reveals no evidence microhemorrhages PITUITARY GLAND: No mass nor parasellar abnormality. No obvious abnormality in the cavernous sinuses. FLOW VOIDS: The expected flow void are noted. No evidence of obvious aneurysm nor obvious vascular ma lformation. PARANASAL SINUSES: There is some mild mucosal thickening left maxillary sinus. No associated fluid l evel. Other paranasal sinuses clear. ORBITS: The right orbit is abnormally elongated with AP measurement of 3 cm. The opposite-left germania l-appearing orbit exhibits AP measurement of 2.1 cm. IMPRESSION: The only intracranial finding is a solitary tiny 2 millimeter nonspecific focus of signal abnormality in the right supra ventricular white matter, not associated with hemorrhage, surrounding edema nor r estricted diffusion. This is a nonspecific finding. Right orbital globe is again noted to be abnormally elongated, as evident on recent CT scan. Mild mucosal thickening noted in the left maxillary sinus. DATA REPOSITORY:
== END ==
PROVIDERS: PCP Family Medicine; Visit Provider Nurse Practitioner Adult Health
DX: R47.89 Other speech disturbances (principal); R94.02 Abnormal brain scan
CPT/HCPCS: 70551

== ENCOUNTER 2021-10-10 02:53 | Outpatient (CLI) | payer BC, SELFPAY ==
[2021-10-10 12:30] LABS: Hemoglobin A1C 7.1 % (<5.7)
== END 2021-10-10 02:54 | disposition home or self-care (01) ==
LOC: LBO 02:53
PROVIDERS: PCP Family Medicine; Visit Provider Family Medicine
DX: E11.9 Type 2 diabetes mellitus without complications (principal); I10 Essential (primary) hypertension
CPT/HCPCS: 36415; 80053; 83036

== ENCOUNTER 2022-02-19 02:38 | Outpatient (CLI) | payer BC, SELFPAY ==
[2022-02-19 16:05] LABS: Hemoglobin A1C 10.1 % (<5.7)
[2022-02-19 19:13] LABS: ALT 34 U/L (14-59); AST 15 U/L (15-37); Albumin 3.5 g/dL (3.4-5.0); Alkaline Phosphatase 148 U/L (46-116); Anion Gap 9.3 mmol/L (3-11); BUN 21 mg/dL (7-18); Bilirubin, Total 0.3 mg/dL (0.2-1.0); CO2 26.7 mmol/L (21.0-32.0); Calcium 9.1 mg/dL (8.5-10.1); Chloride 99 mmol/L (98-107); Estimated GFR 65.71 (mL/min/1.73m2); Glucose 286 mg/dL (74-106); Potassium 3.9 mmol/L (3.5-5.1); Sodium 135 mmol/L (136-145); Total Protein 7.2 g/dL (6.4-8.2)
== END 2022-02-19 02:39 | disposition home or self-care (01) ==
LOC: LBO 02:38
PROVIDERS: PCP Family Medicine; Visit Provider Family Medicine
DX: I10 Essential (primary) hypertension (principal); E11.9 Type 2 diabetes mellitus without complications
CPT/HCPCS: 36415; 80053; 83036

== ENCOUNTER 2022-03-01 10:38 | Outpatient (REF) | payer BC, SELFPAY ==
--- NOTE | 2022-03-01 08:30 | PAPFT_PTH ---
PATIENT: Elly Gardner LOC: [facility] U#:[id number] AGE/SX: 56/F ROOM: RE03/01/[address]: Rhea Jackson MD, DC : 1965 BED: DIS: 03/01/2022 SPEC #: [id number] RECD: 03/01/22 12:53 STATUS: JOSE REQ #: [id number] RUBA: 03/01/22 08:[address]: Rhea Jackson DEPT: [facility] Cytology RECD BY: Nilsa Herrera Tissues: 1 - CX/ENDOCX FOR PAP SMEARS Procedures: PAP THIN PREP/UVM Screening HPV DNA PROBE Comments: [id number] (HPV 16 & 18/45)
== END 2022-03-01 10:39 | disposition home or self-care (01) ==
LOC: LBN 10:38
PROVIDERS: PCP Family Medicine; Visit Provider Family Medicine
DX: Z12.4 Encounter for screening for malignant neoplasm of cervix (principal); Z11.51 Encounter for screening for human papillomavirus (HPV); R87.810 Cervical high risk human papillomavirus (HPV) DNA test positive
CPT/HCPCS: 88142; 87624

== ENCOUNTER 2022-05-28 00:27 | Outpatient (CLI) | payer BC, SELFPAY ==
--- NOTE | 2022-05-28 08:00 | DI.MAMMO_ITS ---
Exam(s) MAMMO SCREENING EXAM: MAMMO SCREENING CLINICAL HISTORY: screening,Z12.39 TECHNIQUE: Mammograms were interpreted according to the usual protocol including computer analysis w [employer] CAD system, tomosynthesis and C-view imaging. COMPARISON: 2013 through 2021 FINDINGS: The breasts are composed of mainly fatty density , Breast Density category A. No suspicious masses or suspicious microcalcifications are seen. No skin thickening or abnormal axillary lymph nodes are seen. There has been no significant change from prior exams. IMPRESSION: BI-RADS Category 1, Negative mammogram Yearly screening mammography is recommended. Breast Density - Category A, fatty density. A negative radiographic report should not delay biopsy if a dominant or clinically suspicious mass is present. Up to ten percent of cancers are not identified on mammography. A negative report may reinforce clinical impression. Adenosis and dense breasts may obscure an underlying neoplasm. False positive reports average 6 to 10%. Patient will receive a letter notifying them of these results.
== END 2022-05-28 00:47 ==
LOC: DI 00:27
PROVIDERS: PCP Family Medicine; Visit Provider Family Medicine
DX: Z12.31 Encounter for screening mammogram for malignant neoplasm of breast (principal)
CPT/HCPCS: 77063; 77067

== ENCOUNTER 2022-05-28 01:58 | Outpatient (CLI) | payer BC, SELFPAY ==
[2022-05-28 16:22] LABS: HCT 42.3 % (36.0-46.0); HGB 14.1 g/dL (11.2-15.7); MCH 31.1 pg (27.0-33.0); MCHC 33.3 % (32.0-36.0); MCV 93 fL (80-95); MPV 10.7 fL (8.0-11.0); Platelet Count 270 10^3/uL (130-400); RBC 4.54 10^6/uL (3.93-5.22); RDW 12.1 % (11.7-14.6); RDW-SD 41.7 fL; WBC 8.32 10^3/uL (4.4-10.8)
[2022-05-28 17:04] LABS: Hemoglobin A1C 7.5 % (<5.7)
[2022-05-28 17:26] LABS: COMMENT (LAB VIEW ONLY) 105.06 mg/dL; Microalb ug/mg Crea 2.4 ug/mg Cr
[2022-05-28 17:53] LABS: ALT 30 U/L (14-59); AST 18 U/L (15-37); Albumin 3.9 g/dL (3.4-5.0); Alkaline Phosphatase 123 U/L (46-116); Anion Gap 7.8 mmol/L (3-11); BUN 21 mg/dL (7-18); Bilirubin, Total 0.3 mg/dL (0.2-1.0); CO2 30.2 mmol/L (21.0-32.0); Calcium 9.5 mg/dL (8.5-10.1); Chloride 100 mmol/L (98-107); Glucose 129 mg/dL (74-106); Potassium 3.6 mmol/L (3.5-5.1); Sodium 138 mmol/L (136-145); TSH (W/Ref FT4) 2.17 uIU/mL (0.36-3.74); Total Protein 7.4 g/dL (6.4-8.2); Vitamin B12 1360 pg/mL (193-986)
== END 2022-05-28 01:59 | disposition home or self-care (01) ==
LOC: LBO 01:58
PROVIDERS: PCP Family Medicine; Visit Provider Family Medicine
DX: I10 Essential (primary) hypertension (principal); E11.9 Type 2 diabetes mellitus without complications; R41.3 Other amnesia; F02.80 Dementia in other diseases classified elsewhere, unspecified severity, without behavioral disturbance, psychotic disturbance, mood disturbance, and anxiety; G31.01 Pick's disease
CPT/HCPCS: 36415; 80053; 85027; 82043; 82570; 82607; 83036; 84443

== ENCOUNTER 2022-10-01 04:29 | Outpatient (CLI) | payer BC, SELFPAY ==
[2022-10-01 12:07] LABS: Hemoglobin A1C 6.6 % (<5.7)
== END 2022-10-01 04:30 | disposition home or self-care (01) ==
LOC: LBO 04:30
PROVIDERS: PCP Family Medicine; Visit Provider Family Medicine
DX: E11.9 Type 2 diabetes mellitus without complications (principal)
CPT/HCPCS: 36415; 83036

== ENCOUNTER 2023-02-14 03:08 | Outpatient (CLI) | payer BC, SELFPAY ==
[2023-02-14 07:47] LABS: Hemoglobin A1C 6.7 % (<5.7)
[2023-02-14 07:53] LABS: COMMENT (LAB VIEW ONLY) 109.09 mg/dL; Microalb ug/mg Crea 3.6 ug/mg Cr
[2023-02-14 08:21] LABS: ALT 33 U/L (14-59); AST 14 U/L (15-37); Albumin 3.9 g/dL (3.4-5.0); Alkaline Phosphatase 143 U/L (46-116); Anion Gap 10.1 mmol/L (3-11); BUN 29 mg/dL (7-18); Bilirubin, Total 0.3 mg/dL (0.2-1.0); CO2 26.9 mmol/L (21.0-32.0); CREATININE 1.1 mg/dL (0.55-1.02); Calcium 9.4 mg/dL (8.5-10.1); Chloride 102 mmol/L (98-107); Estimated GFR 58.24 (mL/min/1.73m2); Glucose 165 mg/dL (74-106); Sodium 139 mmol/L (136-145); Total Protein 7.9 g/dL (6.4-8.2); Vitamin B12 454 pg/mL (193-986)
== END 2023-02-14 03:09 | disposition home or self-care (01) ==
PROVIDERS: PCP Family Medicine; Visit Provider Family Medicine
DX: U09.9 Post COVID-19 condition, unspecified (principal); Z00.00 Encounter for general adult medical examination without abnormal findings; E11.9 Type 2 diabetes mellitus without complications; I10 Essential (primary) hypertension
CPT/HCPCS: 36415; 80053; 82043; 82570; 82607; 83036

== ENCOUNTER → 2023-05-31 00:39 | Outpatient (CLI) | payer BC, SELFPAY ==
--- NOTE | 2023-05-31 08:15 | DI.DEXA_ITS ---
Exam(s) XR DEXA BONE DENSITY W/WO ROSA EXAM: XR DEXA BONE DENSITY W/WO ROSA CLINICAL HISTORY: post menopausal,SCREENING FOR OSTEOPOROSIS, Z78.0 TECHNIQUE: COMPARISON: No exams were available for comparison FINDINGS: Lateral Spine Image: Unremarkable. No compression deformities identified. Left hip: Total T-Score: -0.7 Total Z-Score: 0.2 T- and Z-scores: Within normal limits. Lumbar Spine: Total T-Score: -2.2 Total Z-Score: -0.9 T- and Z-scores: Findings are consistent with osteopenia. There is osteoporosis in the L3 and L4 shade tebral bodies with T-scores of -3.0 and -3.8 respectively. IMPRESSION: Osteoporosis in the lower lumbar spine.
--- NOTE | 2023-05-31 14:40 | DI.MAMMO_ITS ---
Exam(s) MAMMO SCREENING EXAM: MAMMO SCREENING CLINICAL HISTORY: screening,Z12.39 TECHNIQUE: Bilateral full field digital CC and MLO mammographic images were obtained with 3D tomosyn thesis and utilizing computer aided detection (CAD). COMPARISON: Available for comparison. FINDINGS: Masses/Architectural Distortion: No suspicious masses or areas of architectural distortion are presen t. Microcalcifications: No suspicious pleomorphic-type are seen. Skin Thickening/Nipple Retraction: None. IMPRESSION: 1. No significant interval change with no specific features of malignancy noted. 2. Unless there is more urgent need, screening mammography is recommended, as per [employer] guidelines. BI-RADS Category 1 - Negative Breast Density - Category B - Scattered areas of fibroglandular density Breast density category C or D implies that the patient has dense breast tissue. Dense breast tissue is very common and is not abnormal but dense breast tissue can make it harder to find cancer on a ma mmogram. Also, dense breast tissue may increase their breast cancer risk. This information about the result of the mammogram report was provided to the patient to raise their awareness. Use this report when you speak with the patient about their risks for breast cancer, which includes their family hist ory. At that time, you may recommend for more screening tests (Ultrasound or MRI) as they might be us eful based on their risk. A negative radiographic report should not delay biopsy if a dominant or clinically suspicious mass is present. Up to ten percent of cancers are not identified on mammography. A negative report may reinforce clinical impression. Adenosis and dense breasts may obscure an underlying neoplasm. False positive reports average 6 to 10%. Patient will receive a letter notifying them of these results.
== END ==
PROVIDERS: PCP Family Medicine; Visit Provider Family Medicine
DX: Z12.31 Encounter for screening mammogram for malignant neoplasm of breast (principal); Z78.0 Asymptomatic menopausal state; Z13.820 Encounter for screening for osteoporosis; M81.0 Age-related osteoporosis without current pathological fracture
CPT/HCPCS: 77063; 77067; 77080

== ENCOUNTER 2023-08-07 10:09 | Outpatient (CLI) | payer BC, SELFPAY ==
[2023-08-07 12:48] LABS: HCT 43.5 % (36.0-46.0); HGB 14.7 g/dL (11.2-15.7); MCH 31.7 pg (27.0-33.0); MCHC 33.8 % (32.0-36.0); MCV 94 fL (80-95); MPV 11.2 fL (8.0-11.0); Platelet Count 260 10^3/uL (130-400); RBC 4.64 10^6/uL (3.93-5.22); RDW 12.3 % (11.7-14.6); RDW-SD 42.5 fL; WBC 6.04 10^3/uL (4.4-10.8)
[2023-08-07 13:26] LABS: ALT 33 U/L (14-59); AST 14 U/L (15-37); Albumin 3.6 g/dL (3.4-5.0); Alkaline Phosphatase 132 U/L (46-116); BUN 26 mg/dL (7-18); Bilirubin, Total 0.5 mg/dL (0.2-1.0); Chloride 102 mmol/L (98-107); Glucose 163 mg/dL (74-106); Potassium 4.2 mmol/L (3.5-5.1); Sodium 139 mmol/L (136-145); Total Protein 7.2 g/dL (6.4-8.2)
[2023-08-07 13:54] LABS: Hemoglobin A1C 6.8 % (<5.7)
[2023-08-07 14:54] LABS: PTT Activated 23.7 sec (23.6-32.8); Prothrombin Time 9.9 sec (9.1-11.1)
== END 2023-08-07 10:10 | disposition home or self-care (01) ==
LOC: LOS 10:09
PROVIDERS: PCP Family Medicine; Visit Provider Family Medicine
DX: R19.7 Diarrhea, unspecified (principal); I10 Essential (primary) hypertension; E11.9 Type 2 diabetes mellitus without complications; R47.01 Aphasia; U09.9 Post COVID-19 condition, unspecified
CPT/HCPCS: 36415; 80053; 85027; 83036; 85610; 85730

== ENCOUNTER 2023-12-04 00:49 | Outpatient (CLI) | payer BC, SELFPAY ==
--- NOTE | 2023-12-04 09:25 | DI.MRI_ITS ---
Exam(s) MR BRAIN WO EXAM: MR BRAIN WO CLINICAL HISTORY: G30.9,F02.80 Alzheilmer's,dementia suspected-Please include ARIA protocol. TECHNIQUE: Multiplanar multisequence MRI of the brain was performed. CONTRAST MATERIAL: Noncontrast COMPARISON: MR MR BRAIN WO from 07/05/2021 FINDINGS: VENTRICLES AND EXTRA AXIAL SPACES: Normal in size and morphology for the patient's age. HEMORRHAGE: None. CEREBRAL PARENCHYMA: No focus of restricted diffusion to suggest acute infarct. No space-occupying le olayinka identified. No change in tiny high signal focus in the right supraventricular white matter. No new high signal foci. Lzim-xt-mybzpfsk atrophy, somewhat disproportionate for the patient's age. MIDLINE SHIFT: None. BRAINSTEM/CEREBELLUM: Normal. CALVARIUM: Normal. VISUALIZED PARANASAL SINUSES/MASTOIDS: Minimal mucosal thickening at the floor of the left maxillary sinus. Orbits: The right globe is again noted to be abnormally elongated. Pituitary: Normal. Vasculature: Normal flow voids. IMPRESSION: Vpua-ob-djxwfbmd atrophy, somewhat disproportionate for the patient's age. Stable single high signal white matter focus in the right supra ventricular white matter. No new abnormalities. DATA REPOSITORY:
== END 2023-12-04 01:09 ==
PROVIDERS: PCP Family Medicine; Visit Provider Specialist
DX: G30.0 Alzheimer's disease with early onset (principal)
CPT/HCPCS: 70551

== ENCOUNTER 2023-12-04 10:25 | Outpatient (CLI) | payer BC, SELFPAY ==
[2023-12-04 10:15] LABS: HCT 47.4 % (36.0-46.0); HGB 15.9 g/dL (11.2-15.7); MCH 32.1 pg (27.0-33.0); MCHC 33.5 % (32.0-36.0); MCV 96 fL (80-95); MPV 10.4 fL (8.0-11.0); Platelet Count 251 10^3/uL (130-400); RBC 4.96 10^6/uL (3.93-5.22); RDW-SD 42.4 fL
[2023-12-04 10:29] LABS: PTT Activated 23.4 sec (23.6-32.8); Prothrombin Time 9.9 sec (9.1-11.1)
[2023-12-04 11:15] LABS: ALT 31 U/L (14-59); AST 14 U/L (15-37); Albumin 3.8 g/dL (3.4-5.0); Alkaline Phosphatase 127 U/L (46-116); Anion Gap 8.1 mmol/L (3-11); BUN 28 mg/dL (7-18); Bilirubin, Total 0.39 mg/dL (0.2-1.0); CO2 28.9 mmol/L (21.0-32.0); CREATININE 1.2 mg/dL (0.55-1.02); Calcium 9.2 mg/dL (8.5-10.1); Chloride 104 mmol/L (98-107); Estimated GFR 52.14 (mL/min/1.73m2); Glucose 125 mg/dL (74-106); Potassium 4.6 mmol/L (3.5-5.1); Sodium 141 mmol/L (136-145); TSH 2.11 uIU/Ml (0.36-3.74); Total Protein 7.5 g/dL (6.4-8.2); Vitamin B12 448 pg/mL (193-986)
[2023-12-11 10:35] LABS: Result Genotype: e3/e3; Specimen WB Whole Blood
== END 2023-12-04 10:26 | disposition home or self-care (01) ==
LOC: LBO 10:26
PROVIDERS: PCP Family Medicine; Visit Provider Specialist
DX: G30.9 Alzheimer's disease, unspecified (principal); F02.80 Dementia in other diseases classified elsewhere, unspecified severity, without behavioral disturbance, psychotic disturbance, mood disturbance, and anxiety
CPT/HCPCS: 36415; 80053; 81401; 85027; 82607; 84443; 85610; 85730

== ENCOUNTER 2023-12-17 15:51 | Emergency (ER) | payer BC, SELFPAY ==
[2023-12-17] VITALS (21 sets, daily range): BP systolic 119–161; BP diastolic 56–84; PULSE 53–64; RESP 14; TEMP 36.2; O2SAT 95–99
--- NOTE | 2023-12-17 16:39 | DI.CT_ITS ---
Exam(s) CT ABDOMEN PELVIS W EXAM: CT ABDOMEN PELVIS W CLINICAL HISTORY: Bloating, diffuse pain, diarrhea. TECHNIQUE: Imaging Protocol: Axial computed tomography images with coronal and sagittal reformatted images were created and reviewed CONTRAST MATERIAL: Intravenous: Omnipaque-350 100cc Oral: None COMPARISON: CT CT BRAIN NECK CTA from 06/29/2021 FINDINGS: VISUALIZED LUNG BASES: No nodules nor pleural effusions evident. ABDOMEN: There is no ascites. LIVER: There are no focal hepatic lesions evident. No dilated intrahepatic ducts. GALLBLADDER/BILIARY: No obvious gallbladder pathology. CBD is not dilated. PANCREAS: No evidence of pancreatic mass nor dilatation of the pancreatic duct. SPLEEN: Spleen is not enlarged. No obvious intrasplenic lesions. Splenic and portal veins are paten t. ADRENALS: There are no significant adrenal masses. KIDNEYS:No cysts evident. No solid renal masses. No calculi nor hydronephrosis.. ABDOMINAL AORTA: Abdominal aorta is not enlarged. LYMPH NODES:There are multiple minimally prominent mesenteric lymph nodes. Largest of these measures 1 cm. No prominent mesenteric masses nor omental caking. ABDOMINAL WALL: No evidence of significant anterior abdominal wall nor inguinal hernia. GI: There are multiple fecalized small bowel loops in the left side of the abdomen which exhibit uppe r normal diameters. More distal small bowel loops are not fecalized. PELVIS: GI: Appendix is not identified and may be surgically absent. There is no significant sigmoid diverti cular disease. LYMPH NODES: There is no intrapelvic nor inguinal adenopathy. REPRODUCTIVE: Uterus size is normal but endometrium appears slightly thickened. No abnormal adnexal masses and no free fluid in the pelvis. URINARY BLADDER: No calculi nor obvious masses evident OSSEOUS: No fractures and no significant osseous lesions. IMPRESSION: 1. The appendix is not seen and may be surgically absent. 2. There are fecalized small bowel loops in the left side of the abdomen which exhibit upper normal l imits size. No obvious bowel obstruction, free air, nor ascites. 3. There is slight thickening of the uterine endometrium this age group. Recommend follow-up ultraso und. There are no abnormal adnexal findings. Report called by myself to ER physician 12/17/2023 6:15 p.m. RADIATION DOSE DELIVERED: 535.79mGy.cm Total DLP DATA REPOSITORY: All CT scans at this facility are submitted to the National Radiology Data Registry (NRDR) Dose Index Registry (DIR) with the [employer] ([employer]). RADIATION OPTIMIZATION: All CT scans at this facility use at least one of these dose optimization te chniques: automated exposure control; mA and/or kV adjustment per patient size (includes targeted exa ms where dose is matched to clinical indication); or iterative reconstruction.
--- NOTE | 2023-12-17 16:45 | RT.EKG_ITS ---
APPROVED REPORT Exam: Resting ECG Reason for Exam: Abd pain Patient Location: E HR:54 bpm ECG Measurements Heart Rate 54 AXIS MO 144 P 43 QRSd 86 QRS 34 QT 437 T 31 QTc 417 Conclusion Sinus bradycardia, rate 54 No STEMI
[2023-12-17 16:46] LABS: Abs Immature Grans 0.06 10^3/uL (0.0-0.06); Absolute Basophil Count 0.04 10^3/uL (0.0-0.2); Absolute Eosinophil Count 0.28 10^3/uL (0.0-0.7); Absolute Lymphocyte Count 2.21 10^3/uL (1.2-3.4); Absolute Monocyte Count 0.53 10^3/uL (0.1-0.8); Absolute Neutrophil Count 4.51 10^3/uL (1.2-6.7); Basophils % 0.5 %; Eosinophils % 3.7 %; HCT 45.6 % (36.0-46.0); HGB 15.2 g/dL (11.2-15.7); Immature Grans % 0.8 %; MCH 31.3 pg (27.0-33.0); MCHC 33.3 % (32.0-36.0); MCV 94 fL (80-95); MPV 10.5 fL (8.0-11.0); Monocytes % 6.9 %; Neutrophils % 59.1 %; Platelet Count 254 10^3/uL (130-400); RBC 4.85 10^6/uL (3.93-5.22); RDW 12.1 % (11.7-14.6); RDW-SD 41.9 fL; WBC 7.63 10^3/uL (4.4-10.8)
[2023-12-17 17:01] LABS: ALT 38 U/L (14-59); AST 22 U/L (15-37); Albumin 4.1 g/dL (3.4-5.0); Alkaline Phosphatase 127 U/L (46-116); Anion Gap 9.5 mmol/L (3-11); BUN 14 mg/dL (7-18); Bilirubin, Total 0.38 mg/dL (0.2-1.0); CO2 26.5 mmol/L (21.0-32.0); CREATININE 1.1 mg/dL (0.55-1.02); Calcium 9.5 mg/dL (8.5-10.1); Chloride 105 mmol/L (98-107); Estimated GFR 57.88 (mL/min/1.73m2); Glucose 97 mg/dL (74-106); Lipase 35 U/L (16-77); Magnesium 1.8 mg/dL (1.8-2.4); Potassium 3.5 mmol/L (3.5-5.1); Sodium 141 mmol/L (136-145); Total Protein 7.8 g/dL (6.4-8.2)
[2023-12-17] MEDS: Normal Saline - Diluent 50 ML VIAL IJ (17:40)
[2023-12-17] MEDS: Omnipaque 350 MG/ML 100 ML BTL IJ (17:41)
--- NOTE | 2023-12-17 17:41 | ED.GENADUL_ITS ---
Discharge Plan Disposition Patient Disposition: Home Condition: Stable Discharge Details Clinical Impression: Diarrhea, Abdominal bloating, Thickened endometrium, Essential hypertension, Gastritis, Diabetes mellitus, Sleep apnea Primary Care Provider: Rhea Jackson ED Provider: Jenna Batres Home Meds and New Rx's Prescriptions: No Action (DME) blood-glucose meter Misc See Rx Instructions .ROUTE .MEDSUPPLY Qty: 1 0RF Rx Instructions: As directed atenolol 50 mg tablet 50 mg PO DAILY Qty: 100 12RF losartan 100 mg tablet 100 mg PO DAILY Qty: 90 6RF prochlorperazine maleate 10 mg tablet 10 mg PO TID PRN (Reason: nausea and vomiting) Qty: 20 0RF loperamide 2 mg tablet 2 mg PO Q6H PRN (Reason: loose stool) Qty: 30 0RF venlafaxine 150 mg capsule,extended release 24hr 150 mg PO DAILY Qty: 90 5RF montelukast [Singulair] 10 mg tablet 10 mg PO DAILY Qty: 90 4RF triamcinolone acetonide 0.1 % cream 1 applic topical BID Qty: 80 0RF Rx Instructions: apply to foot (DME) blood-glucose meter [Contour Meter] Kit See Rx Instructions .Route Qty: 1 0RF Rx Instructions: As directed Eii.9 (DME) Blood Glucose Test Strip See Rx Instructions .ROUTE .MEDSUPPLY Qty: 300 5RF Rx Instructions: e11.9 test 3 times daily and prn (DME) Contour Next Test Strips Strip See Rx Instructions .Route Qty: 180 6RF Rx Instructions: As directed. E11.9 BID testing albuterol sulfate [Proventil HFA] 90 mcg/actuation HFA aerosol inhaler 2 puff inhalation QID PRN (Reason: shortness of breath or wheezing) Qty: 8.5 5RF aspirin [Adult Low Dose Aspirin] 81 mg tablet,delayed release (DR/EC) 81 mg PO DAILY Qty: 90 12RF (DME) pen needle, diabetic [BD Ultra-Fine Mini Pen Needle] 31 gauge x 3/16 needle See Rx Instructions .ROUTE .COMPLEX Qty: 100 4RF Dose Instruction: USE IT ONCE DAILY Rx Instructions: USE IT ONCE DAILY omeprazole 20 mg capsule,delayed release(DR/EC) 20 mg PO DAILY Qty: 90 4RF (DME) lancets [Microlet Lancet] Misc See Rx Instructions .Route Qty: 400 4RF Rx Instructions: As directed. E11.9 four times daily testing insulin glargine [Lantus Solostar U-100 Insulin] 100 unit/mL (3 mL) insulin pen 40 unit subcut QAM Qty: 135 6RF memantine 10 mg tablet 10 mg PO BID Qty: 180 4RF Jardiance 25 mg tablet 25 mg PO QAM Qty: 90 5RF donepezil 10 mg tablet 10 mg PO QHS Qty: 90 3RF Discharge Instructions Instructions: Diarrhea, Adult ED Additional Instructions: You were seen in the emergency department today for evaluation of diarrhea and abdominal bloating. In our department you had a full physical examination performed, had laboratory studies that were reassuring and had a CT scan that did not show any emergent conditions to explain your symptoms. We did note a change in the contents of your small bowel that could be associated with slower transit through your gut, though there was no sign of blockage. Additionally, your endometrium, the lining of your uterus, was thicker than expected for somebody who has gone through menopause. This needs to be evaluated by your primary care provider, typically via ultrasound, to ensure that you are not developing a cancer or other concerning abnormality. Please continue to use [id number] medications to manage your pain, maintain good hydration and nutrition, I recommend small frequent meals to avoid the sensation of fullness and bloating. You should return to the emergency department immediately if you develop fever, chills, sudden change or worsening of your pain, or if you fail to pass stool or gas for 24 hours. You should follow-up with your primary care provider in the next few days to discuss this visit and any symptoms that change, worsen, or persist. Thank you for allowing us to be part of your care. HPI General Date/Time Provider Initiated Documentation: 12/17/23 16:00 . Limitations to Documentation: no limitations . Information obtained by: patient and old records reviewed . HPI Narrative: MDM: In brief, this is a 58-year-old female patient with a past medical history of diabetes, sleep apnea, hypertension, duodenitis, presenting for evaluation of diarrhea and abdominal bloating/discomfort. My differential includes but is not limited to medication effect, certainly considered gastroenteritis, colitis, diverticulitis, appendicitis, pancreatitis, cholecystitis, hepatitis, gastritis/PUD. I considered infectious diarrhea so the patient is without recent antibiotic use, foreign travel, or exposure to unsanitary water sources to put her at increased risk of this. She is not immunocompromised and is maintaining her hydration and nutrition. The patient has not had any abdominal surgeries to put her at increased risk for bowel obstruction, and she is without personal history nor significant risk factors for aortic disease or mesenteric ischemia. No urinary tract symptoms to suggest UTI or nephrolithiasis. We will obtain laboratory studies to include CBC, CMP, lipase, and will proceed with a abdominal CT scan to evaluate for any abnormalities to account for her symptoms. At this time the patient is not desiring of any medications for management of her symptoms. If she passes a liquid stool we will certainly send it for sample, though the patient reports she has not passed any diarrhea today. ED Course: I independently interpreted the laboratory studies, which show no significant leukocytosis, anemia, or thrombocytopenia. The chemistry panel is without evidence of electrolyte abnormality, kidney dysfunction, or liver injury. Lipase is low. I independently interpreted the patient's CT imaging, and discussed the findings with the radiologist. The patient does have fecalization in the jejunum with no evidence of obstruction, of unclear clinical significance. She also has thickening of her endometrium above what would be expected for a postmenopausal woman, and she was made aware of this incidental finding and the need for follow-up with her primary care provider for ultrasonography to evaluate for malignancy. On reassessment the patient has not had any diarrhea, has a benign abdominal examination and is hemodynamically appropriate. We discussed the potential etiologies of her symptoms, which may be due to medication, may be gastroent eritis due to infectious agent, but offered the reassurance against surgical emergency or other life-threatening findings on today's workup. At this time, the patient has had a full medical evaluation and is safe for discharge to home. They are hemodynamically stable, ambulatory, and tolerating PO. They are understanding of the follow-up plan and return precautions. They left our facility without incident. Jenna Batres MD HPI: This is a 58-year-old female patient with a history of diabetes, hypertension, duodenitis, sleep apnea, presenting for evaluation of several weeks of intermittent diarrhea and abdominal bloating. The patient reports that she initially felt that this was due to her Ozempic, but she has received several doses, but did have a recent dose change. She reports that she had profuse diarrhea 1 week ago on Saturday, and noted no blood in her stool but felt very unwell. She had generalized bodyaches, and abdominal bloating with belching. She did not feel any nausea or vomiting, and states that her diarrhea has gradually improved over the last week. She did call her provider to say that she does not want to take the Ozempic anymore. She presented to care because of the ongoing abdominal bloating that she has been experiencing. Patient reports that she has been able to eat and drink normally, states that she has had 2 sections but no other intra-abdominal surgeries. She states that she has not noted any fevers or chills, and is not experiencing any specific point of tenderness in her abdomen. She went camping with her family but drank bottled water and consumed the same foods as anybody else, and nobody else in her home is having similar symptoms of diarrhea. She has not had recent hospitalizations nor antibiotic use. Exam: Gen: Awake and alert, in no apparent distress HEENT: Non-icteric sclera Neck: Supple Lungs: No apparent respiratory distress, normal respiratory effort. CV: Appears well perfused, heart with regular rate and rhythm, strong distal pulses Abdomen: Non-distended, soft, nontender to palpation without rigidity, rebound, or guarding. Bowel sounds present and appropriate. No CVA tenderness. MSK: Moves 4 extremities without apparent limitation in ROM Skin: Visualized skin without rashes, cyanosis. Neuro: Normal Gait, no obvious focal deficits or facial asymmetry. Speaks in full, clear sentences. Psych: Appropriate for situation. Related Data Home Medications ?Medication ?Instructions ?Recorded ?Confirmed triamcinolone acetonide 0.1 % 1 applic topical BID #80 grams 06/26/21 12/17/23 topical cream blood-glucose meter #1 ea 03/01/22 12/17/23 blood-glucose meter (Contour Meter #1 ea 03/09/22 12/17/23 kit) blood sugar diagnostic (Blood #300 ea 05/25/22 12/17/23 Glucose Test strips) blood sugar diagnostic (Contour #180 ea 08/03/22 12/17/23 Next Test Strips) montelukast 10 mg tablet 10 mg PO DAILY #90 tabs 10/04/22 12/17/23 (Singulair) albuterol sulfate 90 mcg/actuation 2 puff inhalation QID PRN 10/09/22 12/17/23 aerosol inhaler (Proventil HFA) shortness of breath or wheezing #8.5 grams atenolol 50 mg tablet 50 mg PO DAILY #100 tabs 12/18/22 12/17/23 losartan 100 mg tablet 100 mg PO DAILY #90 tabs 12/18/22 12/17/23 aspirin 81 mg tablet,delayed 81 mg PO DAILY #90 tabs 12/21/22 12/17/23 release (Adult Low Dose Aspirin) loperamide 2 mg tablet 2 mg PO Q6H PRN loose stool #30 04/17/23 12/17/23 tabs prochlorperazine maleate 10 mg 10 mg PO TID PRN nausea and 04/17/23 12/17/23 tablet vomiting #20 tabs pen needle, diabetic 31 gauge x #100 ea 05/23/23 12/17/2316 (BD Ultra-Fine Mini Pen Needle) omeprazole 20 mg capsule,delayed 20 mg PO DAILY #90 tab-caps 08/08/23 12/17/23 release Lantus Solostar U-100 Insulin 100 40 unit (0.4 mL) subcut QAM #135 mL 08/09/23 12/17/23 unit/mL (3 mL) subcutaneous pen (insulin glargine) lancets (Microlet Lancet) #400 ea 08/09/23 12/17/23 memantine 10 mg tablet 10 mg PO BID #180 tabs 08/22/23 12/17/23 empagliflozin 25 mg tablet 25 mg PO QAM #90 tabs 08/27/23 12/17/23 (Jardiance) donepezil 10 mg tablet 10 mg PO QHS #90 tabs 10/14/23 12/17/23 venlafaxine 150 mg 150 mg PO DAILY #90 caps 11/05/23 12/17/23 capsule,extended release 24 hr Previous Rx's ?Medication ?Instructions ?Recorded triamcinolone acetonide 0.1 % 1 applic topical BID #80 grams 06/26/21 topical cream blood-glucose meter #1 ea 03/01/22 blood-glucose meter (Contour Meter #1 ea 03/09/22 kit) blood sugar diagnostic (Blood #300 ea 05/25/22 Glucose Test strips) blood sugar diagnostic (Contour #180 ea 08/03/22 Next Test Strips) montelukast 10 mg tablet 10 mg PO DAILY #90 tabs 10/04/22 (Singulair) albuterol sulfate 90 mcg/actuation 2 puff inhalation QID PRN 10/09/22 aerosol inhaler (Proventil HFA) shortness of breath or wheezing #8.5 grams atenolol 50 mg tablet 50 mg PO DAILY #100 tabs 12/18/22 losartan 100 mg tablet 100 mg PO DAILY #90 tabs 12/18/22 aspirin 81 mg tablet,delayed 81 mg PO DAILY #90 tabs 12/21/22 release (Adult Low Dose Aspirin) loperamide 2 mg tablet 2 mg PO Q6H PRN loose stool #30 04/17/23 tabs prochlorperazine maleate 10 mg 10 mg PO TID PRN nausea and 04/17/23 tablet vomiting #20 tabs pen needle, diabetic 31 gauge x #100 ea 05/23/2306/28 (BD Ultra-Fine Mini Pen Needle) omeprazole 20 mg capsule,delayed 20 mg PO DAILY #90 tab-caps 08/08/23 release Lantus Solostar U-100 Insulin 100 40 unit (0.4 mL) subcut QAM #135 mL 08/09/23 unit/mL (3 mL) subcutaneous pen (insulin glargine) lancets (Microlet Lancet) #400 ea 08/09/23 memantine 10 mg tablet 10 mg PO BID #180 tabs 08/22/23 empagliflozin 25 mg tablet 25 mg PO QAM #90 tabs 08/27/23 (Jardiance) donepezil 10 mg tablet 10 mg PO QHS #90 tabs 10/14/23 venlafaxine 150 mg 150 mg PO DAILY #90 caps 11/05/23 capsule,extended release 24 hr Allergies Allergy/AdvReac Type Severity Reaction Status Date / Time lisinopril Allergy Intermediate CHEST Verified 12/17/23 16:01 PRESSURE morphine Allergy Unknown FACIAL Verified 12/17/23 16:01 SWELLING semaglutide (From Ozempic) AdvReac Severe diarrhea Verified 12/17/23 16:01 meperidine AdvReac Mild REALLY Verified 12/17/23 16:01 OUT OF IT General Stated Complaint: Nausea/Vomit/Diar ELDA: 3 Course Vital Signs Vital signs: Vital Signs Temperature 36.2 C L 12/17/23 15:54 Pulse 64 12/17/23 15:54 Respiratory Rate 14 12/17/23 15:54 Blood Pressure 149/83 H 12/17/23 15:54 Pulse Oximetry 97 12/17/23 15:54 Temperature 36.2 C L 12/17/23 15:54 Temperature Source Skin 12/17/23 15:54 Pulse 64 12/17/23 15:54 Respiratory Rate 14 12/17/23 15:54 Blood Pressure 149/83 H 12/17/23 15:54 Blood Pressure Position Sitting 12/17/23 15:54 Pulse Oximetry 97 12/17/23 15:54 Oxygen Delivery Method Room Air 12/17/23 15:54 Oxygen Flow Rate 0 12/17/23 15:54 Pain Level 0 12/17/23 15:54 Lab/Test Results Lab/Test Results: Laboratory Tests Range/Units 12/17/23 16:26 WBC (4.4-10.8) 10^3/uL 7.63 RBC (3.93-5.22) 10^6/uL 4.85 Hgb (11.2-15.7) g/dL 15.2 Hct (36.0-46.0) % 45.6 MCV (80-95) fL 94 MCH (27.0-33.0) pg 31.3 MCHC (32.0-36.0) % 33.3 RDW (11.7-14.6) % 12.1 Plt Count (130-400) 10^3/uL 254 MPV (8.0-11.0) fL 10.5 Immature Gran % % 0.8 Neutrophils % % 59.1 Lymphocytes % % 29.0 Monocytes % % 6.9 Eosinophils % % 3.7 Basophils % % 0.5 Nucleated RBC % (0.0-0.3) % 0.0 Absolute Neutrophils (1.2-6.7) 10^3/uL 4.51 Absolute Lymphocytes (1.2-3.4) 10^3/uL 2.21 Absolute Monocytes (0.1-0.8) 10^3/uL 0.53 Absolute Eosinophils (0.0-0.7) 10^3/uL 0.28 Absolute Basophils (0.0-0.2) 10^3/uL 0.04 Sodium (136-145) mmol/L 141 Potassium (3.5-5.1) mmol/L 3.5 Chloride (98-107) mmol/L 105 Carbon Dioxide (21.0-32.0) mmol/L 26.5 Anion Gap (3-11) mmol/L 9.5 BUN (7-18) mg/dL 14 Creatinine (0.55-1.02) mg/dL 1.1 H Est GFR (CKD-EPI 2020) (mL/min/1.73m2) 57.88 Glucose (74-106) mg/dL 97 Calcium (8.5-10.1) mg/dL 9.5 Magnesium (1.8-2.4) mg/dL 1.8 Total Bilirubin (0.2-1.0) mg/dL 0.38 AST (15-37) U/L 22 ALT (14-59) U/L 38 Alkaline Phosphatase (46-116) U/L 127 H Total Protein (6.4-8.2) g/dL 7.8 Albumin (3.4-5.0) g/dL 4.1 Lipase (16-77) U/L 35 Medical Decision Making Quality:SDOH Health Related Social Needs: No Data to Display PFSH All Active Problems (Updated 12/17/23 @ 18:32 by Jenna Batres MD) Thickened endometrium (Acute) Abdominal bloating (Acute) Diarrhea (Acute) Cervical pain (Acute) Diarrhea (Acute) Cervical high risk HPV (human papillomavirus) test positive (Acute) 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 Abnormal auditory perception of both ears (Acute) Aphasia (Acute) Hearing difficulty (Acute) Post-acute COVID-19 syndrome (Acute) Ankle pain (Acute) Sleep apnea (Acute) Memory change (Acute) Diabetes mellitus (Chronic) Stress due to illness of family member (Acute) Urinary incontinence (Chronic 06/08/13) Nasal valve stenosis (Chronic 08/19/17) Hypertrophy of nasal turbinates (Chronic 08/19/17) Gastritis (Chronic 01/01/17) 01/01/17; MODERATE Essential hypertension (Chronic 03/13/13) Esophagitis (Chronic 01/01/17) 01/01/17~SEVERE WITH EROSION Duodenitis (Chronic 01/01/17) 01/01/17 Depression (Chronic 10/03/17) Anxiety (Chronic 09/27/16) Annual physical exam (Acute 11/08/16) Medical History Anxiety Dysfunctional uterine bleeding Dysfunctional uterine bleeding Epicondylitis left Epicondylitis GERD (gastroesophageal reflux disease) HTN (hypertension) Postprandial abdominal bloating (10/03/17) Stuffy nose 08/30/14 Surgical History section X 2 Colonoscopy - MAC (01/01/17) Dilation and curettage (~2007) and Hysteroscopy for DUB EGD - MAC (01/01/17) H/O section x 2 History of section NASAL SURGERY 10/21/17; DR. ZAMUDIO S/P dilatation and curettage 04/15/07 and hysterectomy for DUB Status post dilation and curettage Family History Mother Diabetes Essential hypertension Grafts VASCULAR Depression Breast cancer Hyperlipidemia Father Essential hypertension CAD (coronary artery disease) Heart disease Myocardial infarction Hyperlipidemia Cancer of kidney Sister Alcohol abuse Depression Brother No problems noted. Maternal Grandfather Depression Prostate cancer Paternal Grandfather Asthma Maternal Grandmother Diabetes Heart disease Paternal Grandmother Essential hypertension Heart disease Hyperlipidemia Son Alcohol abuse Hypertension Son Depression Hypertension Daughter Depression Social History Smoking/Tobacco Use Status: Former Tobacco Use tobacco type: cigarettes Quit Date: 04/15/85 Tobacco: How many years used: 35 Second Hand Exposure: Yes Smoking risk assessment performed?: Yes Alcohol Intake: current Alcohol Intake frequency: holidays/special occasions only Alcohol type: beer, wine and hard liquor Drug use: Never Substance use type: does not use Caregiver/Support person: No Household members: spouse Housing: house Communication Needs: None Do you need help understanding health information?: Never current occupation: Instruction assistant elementary teacher Pets and animals: Yes Pets and animals: cat(s) and dog(s) Sexually active: Yes Do you think of yourself as: straight/heterosexual Current gender identity: female What is your relationship status?: How often do you talk on the phone with friends or family?: three or more times per week How often do you get together with friends or relatives?: three or more times per week How often do you attend christianity or mosque services?: decline to answer Do you belong to any clubs or organized social groups?: no Panel score (0-1 are the most socially isolated patients): 2 What type of physical activity do you participate in: walking and decline to answer Duration: 30-45 minutes/day Frequency: 5-6 times per week Jennifer/Jewish: Denominational Special jennifer needs: No Seatbelt use: always Helmet use: Yes Helmet use: sometimes Drive intox or ride w/intox local hazmat driver: No Do you feel safe at home: Yes Do you feel safe in your relationship?: Yes Victim of physical abuse: No Victim of emotional abuse: No Victim of sexual abuse: No Would you like helpful sources: No
== END 2023-12-17 18:35 | disposition home or self-care (01) ==
PROVIDERS: Emergency Provider Emergency Medicine; PCP Family Medicine
DX: R19.7 Diarrhea, unspecified (principal); R14.0 Abdominal distension (gaseous); R93.89 Abnormal findings on diagnostic imaging of other specified body structures
CPT/HCPCS: 80053; 83690; 93005; 99285; 74177; 83735; 85025; 93010; 99283; J3490

== ENCOUNTER 2024-02-04 18:09 | Outpatient (REF) | payer BC, SELFPAY ==
[2024-02-04 14:09] LABS: COMMENT (LAB VIEW ONLY) 100.52 mg/dL; Microalb ug/mg Crea 4.5 ug/mg Cr
== END 2024-02-04 18:10 ==
LOC: LBN 18:09
PROVIDERS: PCP Family Medicine; Visit Provider Family Medicine
DX: E11.9 Type 2 diabetes mellitus without complications (principal); Z23 Encounter for immunization; I10 Essential (primary) hypertension; G31.01 Pick's disease; F02.80 Dementia in other diseases classified elsewhere, unspecified severity, without behavioral disturbance, psychotic disturbance, mood disturbance, and anxiety
CPT/HCPCS: 82043; 82570

== ENCOUNTER 2024-06-01 01:08 | Outpatient (CLI) | payer BC, SELFPAY ==
--- NOTE | 2024-06-01 07:30 | DI.MAMMO_ITS ---
Exam(s) MAMMO SCREENING EXAM: MAMMO SCREENING CLINICAL HISTORY: screening,Z12.39 TECHNIQUE: Bilateral full field digital CC and MLO mammographic images were obtained with 3D tomosyn thesis and utilizing computer aided detection (CAD). COMPARISON: Available for comparison. FINDINGS: Masses/Architectural Distortion: There are no suspicious nodules or areas of architectural distortion . Microcalcifications: No suspicious pleomorphic-type are seen. Skin Thickening/Nipple Retraction: None. IMPRESSION: 1. No significant interval change with no specific features of malignancy noted. 2. Unless there is more urgent need, screening mammography is recommended, as per [employer] guidelines. BI-RADS Category 1 - Negative Breast Density - Category A - Almost entirely fatty Breast density category C or D implies that the patient has dense breast tissue. Dense breast tissue is very common and is not abnormal but dense breast tissue can make it harder to find cancer on a ma mmogram. Also, dense breast tissue may increase their breast cancer risk. This information about the result of the mammogram report was provided to the patient to raise their awareness. Use this report when you speak with the patient about their risks for breast cancer, which includes their family hist ory. At that time, you may recommend for more screening tests (Ultrasound or MRI) as they might be us eful based on their risk. A negative radiographic report should not delay biopsy if a dominant or clinically suspicious mass is present. Up to ten percent of cancers are not identified on mammography. A negative report may reinforce clinical impression. Adenosis and dense breasts may obscure an underlying neoplasm. False positive reports average 6 to 10%. Patient will receive a letter notifying them of these results.
== END 2024-06-01 01:28 ==
LOC: DI 01:09
PROVIDERS: PCP Family Medicine; Visit Provider Family Medicine
DX: Z12.31 Encounter for screening mammogram for malignant neoplasm of breast (principal); R92.313 Mammographic fatty tissue density, bilateral breasts
CPT/HCPCS: 77063; 77067

== ENCOUNTER 2024-06-09 02:43 | Outpatient (CLI) | payer BC, SELFPAY ==
[2024-06-09 13:41] LABS: ALT 24 U/L (14-59); AST < 5 U/L (15-37); Albumin 3.6 g/dL (3.4-5.0); Alkaline Phosphatase 141 U/L (46-116); Anion Gap 8.9 mmol/L (3-11); BUN 25 mg/dL (7-18); Bilirubin, Total 0.31 mg/dL (0.2-1.0); CO2 28.1 mmol/L (21.0-32.0); CREATININE 1.2 mg/dL (0.55-1.02); Calcium 9.2 mg/dL (8.5-10.1); Chloride 106 mmol/L (98-107); Cholesterol 305 mg/dL (<200); Estimated GFR 51.82 (mL/min/1.73m2); Glucose 148 mg/dL (74-106); HDL Cholesterol 44 mg/dL (40-60); Potassium 4.5 mmol/L (3.5-5.1); Sodium 143 mmol/L (136-145); TSH (W/Ref FT4) 1.79 uIU/mL (0.36-3.74); Total Protein 7.1 g/dL (6.4-8.2); Triglyceride 536 mg/dL (<150); Vitamin B12 515 pg/mL (193-986)
[2024-06-09 13:56] LABS: LDL CHOLESTEROL 125 mg/dL (<100)
[2024-06-09 17:26] LABS: Hemoglobin A1C 7.2 % (<5.7)
== END 2024-06-09 02:44 | disposition home or self-care (01) ==
LOC: LOS 02:44
PROVIDERS: PCP Family Medicine; Visit Provider Family Medicine
DX: I10 Essential (primary) hypertension (principal); E11.9 Type 2 diabetes mellitus without complications; E53.8 Deficiency of other specified B group vitamins; E03.9 Hypothyroidism, unspecified
CPT/HCPCS: 36415; 80053; 80061; 83721; 82607; 83036; 84443

== ENCOUNTER 2024-10-12 12:47 | Outpatient (CLI) | payer BC, SELFPAY ==
[2024-10-12 12:59] LABS: Hemoglobin A1C 7.3 % (<5.7)
[2024-10-12 13:14] LABS: ALT 34 U/L (14-59); AST 14 U/L (15-37); Albumin 3.8 g/dL (3.4-5.0); Alkaline Phosphatase 148 U/L (46-116); BUN 21 mg/dL (7-18); Bilirubin, Total 0.7 mg/dL (0.2-1.0); Calcium 9.2 mg/dL (8.5-10.1); Chloride 102 mmol/L (98-107); Cholesterol 295 mg/dL (<200); Estimated GFR 64.49 (mL/min/1.73m2); Glucose 104 mg/dL (74-106); HDL Cholesterol 36 mg/dL (>or=50); Potassium 3.7 mmol/L (3.5-5.1); Sodium 139 mmol/L (136-145); Total Protein 7.3 g/dL (6.4-8.2); Triglyceride 536 mg/dL (<150)
[2024-10-12 13:52] LABS: LDL CHOLESTEROL 134 mg/dL (<100)
== END 2024-10-12 12:48 | disposition home or self-care (01) ==
PROVIDERS: PCP Family Medicine; Visit Provider Family Medicine
DX: I10 Essential (primary) hypertension (principal); E11.9 Type 2 diabetes mellitus without complications
CPT/HCPCS: 36415; 80053; 80061; 83721; 83036

== ENCOUNTER 2024-12-16 14:49 | Outpatient (CLI) | payer BC, SELFPAY ==
--- NOTE | 2024-12-16 05:15 | DI.MRI_ITS ---
Exam(s) MR BRAIN WO EXAM: MR BRAIN WO CLINICAL HISTORY: 1 year repeat MRI - ?progression G31.01 PICKS DISEASE F02.80 DEMENTIA TECHNIQUE: Multiplanar multisequence MRI of the brain was performed. COMPARISON: MR MR BRAIN WO from 07/05/2021 MR MR BRAIN WO from 12/04/2023 FINDINGS: VENTRICLES AND EXTRA AXIAL SPACES: There is unchanged cerebral atrophy. MIDLINE SHIFT: None. CEREBRAL PARENCHYMA: No focus of restricted diffusion to suggest acute infarct. No space-occupying lesion identified. There is a stable solitary focus of hyperintense signal on the T2 weighted images in the supraventricular white matter. HEMORRHAGE: None. BRAINSTEM/CEREBELLUM: Normal. CALVARIUM: Normal. VISUALIZED PARANASAL SINUSES/MASTOIDS:Clear. CHEHALIS OF MCNAIR: Normal flow void. PITUITARY GLAND: Unremarkable. OTHER FINDINGS: The elongated appearance of the right globe is unchanged. IMPRESSION: 1. No significant change in appearance of the brain compared to the prior examination. There is persistent [id number] cerebral atrophy and is stable white matter focus in the right supra ventricular white matter. 2. No acute abnormality. DATA REPOSITORY:
== END 2024-12-16 15:09 ==
LOC: DI 14:49
PROVIDERS: PCP Family Medicine; Visit Provider Family Medicine
DX: G31.01 Pick's disease (principal); F02.80 Dementia in other diseases classified elsewhere, unspecified severity, without behavioral disturbance, psychotic disturbance, mood disturbance, and anxiety
CPT/HCPCS: 70551